=== PATIENT | female | born 1945 | race Caucasian/White ===

== ENCOUNTER 2022-03-20 13:15 | Outpatient (CLI) | payer MEDICARE, BC, SELFPAY ==
[2022-03-20 22:10] LABS: C Reactive Protein* 0.6 mg/dL (0.5-1.0)
[2022-03-20 22:30] LABS: Erythrocyte SedimentationRate* 16 mm/hr (2-20)
== END 2022-03-20 13:16 | disposition home or self-care (01) ==
PROVIDERS: PCP Nurse Practitioner Family; Visit Provider Nurse Practitioner Family
DX: M35.3 Polymyalgia rheumatica (principal)
CPT/HCPCS: 85651; 86140

== ENCOUNTER 2023-03-12 12:50 | Outpatient (CLI) | payer MEDICARE, BC, SELFPAY | END 2023-03-12 12:51 | disposition home or self-care (01) | LOC: NFLDREF 03-17 22:56 | PROVIDERS: PCP Nurse Practitioner Family; Referring Provider Nurse Practitioner Family; Visit Provider Nurse Practitioner Family | DX: Z87.440 Personal history of urinary (tract) infections (principal) | CPT/HCPCS: 81015 ==

== ENCOUNTER 2023-06-09 13:16 | Outpatient (CLI) | payer MEDICARE, BC, SELFPAY ==
--- OUTSIDE RECORDS SUMMARY | 2023-06-09 13:19 | XMS_ITS | Clinical Summary ---
Author Name Unknown Organization [facility] Address [address] [place] [address] Care Team Providers Care Pearl Digger Name Role Phone Elsewhere, Pcp Primary Care Provider Unavailabl e Source Comments Patient records contain information from all sites at [facility]. For routine questions regarding patient records, call [phone] during business hours, M-F 8:00 AM - 5:00 PM Central Time. Record requests for emergency care only can be directed to [phone] at any time.[facility] Allergies Active Allergy Reactions Criticality Noted Date Comments Cephalexin Rash Medium 05/15/2016 Glucagon Hives (Reselect Reaction),Rash Medium 07/27/2008 Penicillins Rash Medium 12/03/2001 Sulfa (Sulfonamide Antibiotics) Rash Medium 12/03/2001 Medications Medication Sig Dispensed Refills Start Date End Date Status glucosam-chondr oitin-diet cb25 116-100 mg capsule glucosamine-jamie droitin one capsule daily 0 4 Active calcium carbonate (CORAL CALCIUM ORAL) Take 1 tablet by mouth 2 (two) times a day. 500 mg. 0 7 Active docosahexanoic acid/epa (FISH OIL ORAL) Take 1 capsule by mouth 2 (two) times a day. 1200 mg. 0 7 Active melatonin 3 mg tablet Take 1 tablet by mouth at bedtime as needed. For sleep. 0 8 Active ascorbate calcium (VITAMIN C ORAL) Take 1 tablet by mouth every other day. [address] tablet Take 81 mg by mouth daily. 0 Active B complex-vitamin s (BALANCE B-50) tablet Take 1 tablet by mouth daily. 0 Active multivitamin capsule Take 1 capsule by mouth daily. 0 Active polyethylene glycol (MIRALAX) 17 gram powder packet Take 17 g by mouth as needed. Dissolve each 17 g dose in 240 mLs (8 ounces) of beverage. 0 Active MAGNESIUM ORAL Take 350 mg by mouth at bedtime. 0 Active ibuprofen (ADVIL,MOTRIN) 800 mg tablet Take 1 tablet by mouth as needed. 0 1 Active cyclobenzaprine (FLEXERIL) 5 mg tablet Take 1 tablet by mouth as needed. 0 1 Active carboxymethylce llulose (REFRESH TEARS) 0.5 % ophthalmic solution 1 drop 3 (three) times a day as needed for dry eyes. 0 Active ciclopirox (PENLAC) 8 % external solution APPLY 1 APPLICATION TOPICALLY NEEDED FOR TOE FUNGUS 6.6 mL 3 2 Active triamcinolone (KENALOG) 0.1 % ointment Apply 1 application topically 2 (two) times a day as needed for irritation or rash. Apply to affected areas of skin. DO NOT APPLY TO THE FACE. 30 g 1 2 Active Additional Information Patient taking differently:1 application. topicalAs needed, irritation, rash, Apply to affected areas of skin. DO NOT APPLY TO THE FACE., Reported on 05/28/2023 azithromycin (ZITHROMAX) 250 mg tablet Take 1 tablet (250 mg total) by mouth daily. Take 500 mg (2 tablets) by mouth the first day then 250 mg (1 tablet) by mouth for 4 more days. 6 tablet 0 2 Active tretinoin (RETIN-A) 0.05 % cream Apply 1 application topically at bedtime. 45 g 11 3 Active atenoloL (TENORMIN) 25 mg tablet Take 25 mg by mouth daily. 0 Active esomeprazole (NexIUM) [address] capsule take 1 capsule by mouth every day in the morning before breakfast 90 capsule 0 3 Active Additional Information Patient taking differently: As needed, Reported on 05/28/2023 estradioL (CLIMARA) 0.05 mg/24 hr patch APPLY 1 PATCH TOPICALLY ONE TIME PER WEEK 12 patch 0 3 Active atorvastatin (LIPITOR) 10 mg tablet take 1 tablet by mouth every day 90 tablet 0 4 Active losartan (COZAAR) 100 mg tablet Take 1 tablet (100 mg total) by mouth daily. 90 tablet 0 4 06/03/19 25 Active valACYclovir (VALTREX) 1000 mg tablet TAKE 2 TABLETS (2,000 MG TOTAL) BY MOUTH NEEDED (COLD SORES) FOR UP TO 10 DAYS 12 tablet 0 4 Active valACYclovir (VALTREX) 1000 mg tablet TAKE 2 TABLETS (2,000 MG TOTAL) BY MOUTH NEEDED (COLD SORES) FOR UP TO 10 DAYS. 12 tablet 1 2 06/02/19 24 Discontinued(Reo rder) losartan (COZAAR) 100 mg tablet Take 1 tablet (100 mg total) by mouth daily. 90 tablet 3 2 06/02/19 24 Discontinued(Reo rder) atorvastatin (LIPITOR) 10 mg tablet Take 1 tablet (10 mg total) by mouth daily. 90 tablet 3 2 05/25/19 24 Discontinued valACYclovir (VALTREX) 1000 mg tablet Take 2 tablets (2,000 mg total) by mouth as needed (TAKE 2 TABLETS (2000 MG TOTAL) BY MOUTH NEEDED (COLD SORES) FOR UP TO 10 DAYS). 12 tablet 0 4 06/04/19 24 Discontinued valACYclovir (VALTREX) 1000 mg tablet TAKE 2 TABLETS (2,000 MG TOTAL) BY MOUTH NEEDED (COLD SORES) FOR UP TO 10 DAYS 12 tablet 0 4 06/08/19 24 Discontinued Active Problems Problem Noted Date Diagnosed Date Hernia Incisional 04/15/2023 COVID-19 Infection 07/02/2021 Gallstone 06/09/2018 Prolapse Uterine 06/09/2018 Osteopenia 06/09/2018 Hirsutism 06/09/2018 Alopecia Androgenetic 06/09/2018 Primary Osteoarthritis Hip Bilateral 06/09/2018 Chondromalacia Patella Left 06/09/2018 Bunion Left 06/09/2018 Bunion Right 06/09/2018 Pain Low Back Mechanical 06/09/2018 Cough Unspecified Type 05/07/2018 Hypertension Essential Primary 05/07/2018 Hyperlipidemia 05/07/2018 Impaired Fasting Glucose 04/06/2018 Incontinence Urinary Stress Female 05/16/2016 Cancer Skin Basal Cell Personal History 07/07/19 15 Reflux Esophageal 07/30/2013 Overview: Esophageal reflux Irritable Bowel Syndrome Without Diarrhea 2009 Skin Cancer (Primary) NOS 05/04/2009 Gastroesophageal Reflux Disease NOS 05/04/1999 Resolved Problems Problem Noted Date Diagnosed Date Resolved Date Cataract Senile Nuclear Sclerosis Right 05/07/2021 08/15/2021 Overview: Added automatically from request for surgery [id number] Cataract Senile Nuclear Sclerosis Left 05/07/2021 08/29/2021 Overview: Added automatically from request for surgery [id number] Encounters Date Type Department Care Team Description 06/04/2023 Refill Division of General Internal Medicine in [place], [place] [address] [place] [phone] Gene Evans M.D., M.S. Med Change Request 06/04/2023 Refill Division of General Internal Medicine in [place], [place] [address] [place] [phone] Gene Evans M.D., M.S. Med Change Request 06/03/2023 Refill Division of General Internal Medicine in [place], [place] [address] [place] [phone] Gene Evans M.D., M.S. Med Refill 06/02/2023 Refill Division of General Internal Medicine in [place], [place] [address] [place] [phone] Gene Evans M.D., M.S. Med Refill 06/01/2023 Refill Division of General Internal Medicine in [place], [place] [address] [place] [phone] Gene Evans M.D., M.S. Med Refill 05/29/2023 3:00 PM [facility] Telemedicine Department of Obstetrics and Gynecology, Division of Urogynecology in [place], [place] [address] [place] [phone] Duong Giraldo M.D. Incontinence Urinary Stress Female (Primary Dx) 05/28/2023 11:30 AM HEALTH CARE FACILITY ADMINISTRATOR Clinical Communication Virtual Review in [place], [place] 200 [place] [address] Pre-visit Intake 05/22/2023 Refill Division of General Internal Medicine in [place], [place] [address] [place] [phone] Gene Evans M.D., M.S. Med Refill 04/22/2023 Clinical Communication Department of Obstetrics and Gynecology, Division of Urogynecology in [place], [place] [address] [place] [phone] Duong Giraldo M.D. Communication 04/15/2023 1:30 PM HEALTH CARE FACILITY ADMINISTRATOR Comprehensive Visit Division of Metabolic and Abdominal Wall Reconstructive Surgery in [address] [phone] Dahlia Guzman M.D. Hernia Incisional (Primary Dx) 04/14/2023 11:45 AM HEALTH CARE FACILITY ADMINISTRATOR Clinical Communication Virtual Review in [place], [place] [address] [place] [address] Pre-visit Intake 03/16/2023 Refill Division of General Internal Medicine in [place], [place] [address] [place] [phone] Maggy Keller, JAMILA, C.N.P., M.S.N. Med Refill 03/13/2023 Refill Division of General Internal Medicine in [place], [place] [address] [place] [phone] Gene Evans M.D., M.S. Med Refill from Last 3 Months Immunizations Name Administration Dates Next Due HZV (ZOSTAVAX) 03/22/2010 HepB Adult 09/24/2020(Deferred: Patient Ref used) Influenza Split 04/02/2012,03/04/2011 Influenza high dose QV(65 ye ars or older) (PF) 02/22/2020 Influenza, Unspecified 04/02/2012,03/04/2011 PCV20 11/13/2021(Deferred: Patient decision - to receive at later day) PPSV23(Discontinued) 08/04/2013 RZV (SHINGRIX) 11/13/2021, 2(Deferred: Patient Refused) SARS-COV-2 (COVID-19) - PFIZ ER (Discontinued)(12 years or older) 07/20/2020,06/27/2020 Td (Adult), adsorbed 09/23/2002 Td Preservative Free (TENIVA C, DECAVAC) 09/23/2002 Td, (Adult) Unspecified 09/23/2002 Tdap 08/04/2013 influenza high dose (65 year s or older) (PF) 03/09/2014,03/28/2013 influenza vaccine quad (FLUZONE/FLUARIX) (6 months and older)(PF) 03/04/2021 Family History Medical History Relation Name Comments Carotid artery disease Brother 1 Prasad Feng Migraines Brother 1 Prasad Feng Transient ischemic attack Brother 1 Prasad Feng Aortic dissection Brother 2 Rafael Feng Macular degeneration Brother 2 Rafael Feng Carotid artery disease Brother 3 Skin cancer Brother 4 Arsen Feng Transient ischemic attack Brother 4 Arsen Feng Macular degeneration Mother Chuyita Feng Migraines Mother Chuyita Feng No Known Problems Sister Isac Caban Amblyopia Neg Hx Blindness Neg Hx Cataracts Neg Hx Glaucoma Neg Hx Retinal degeneration Neg Hx Retinal detachment Neg Hx Strabismus Neg Hx Vision loss Neg Hx Relation Name Status Comments Brother 1 Prasad Feng Alive Brother 2 Rafael Feng (Age 77) Brother 3 Alive Brother 4 Arsen Feng Father Robin Feng (Age 73) Mother Chuyita Feng (Age 92) Sister Isac Meléndezing Alive Social History Tobacco Use Types Packs/Day Years Used Date Smoking Tobacco: Never Smokeless Tobacco: Never Alcohol Use Standard Drinks/Week Comments No 0 (1 standard drink = 0.6 oz pur e alcohol) Humiliation, Afraid, Rape, and Kick questionnair e Answer Date Recorded Within the last year, have y ou been afraid of your partner or ex-partner? No 07/07/2022 Within the last year, have y ou been humiliated or emotionally abused in other ways by your partner or ex-partner? No Within the last year, have y ou been kicked, hit, slapped, or otherwise physically hurt by your partner or ex-partner? No 07/07/2022 Within the last year, have y ou been raped or forced to have any kind of sexual activity by your partner or ex-partner? No 07/07/2022 Social Connection and Isolat ion Panel [NHANES] Answer Date Recorded In a typical week, how many times do you talk on the phone with family, friends, or neighbors? More than three times a week 07/07/2022 How often do you get togethe r with friends or relatives? Once a week 07/07/2022 How often do you attend chur or zoroastrianism services? More than 4 times per year 07/07/2022 Do you belong to any clubs o r organizations such as hindu groups, unions, fraternal or athletic groups, or school groups? No 07/07/2022 How often do you attend meet ings of the clubs or organizations you belong to? More than 4 times per year 07/07/2022 Are you , , di vorced, , never , or living with a partner? 07/07/2022 AUDIT-C Answer Date Recorded Q1: How often do you have a drink containing alcohol? Monthly or less 07/07/2022 Q2: How many drinks containi ng alcohol do you have on a typical day when you are drinking? Patient does not drink Q3: How often do you have si x or more drinks on one occasion? Never 07/07/2022 Overall Financial Resource Strain (CARDIA) Answe r Date Recorded How hard is it for you to pa y for the very basics like food, housing, medical care, and heating? Not hard at all 07/07/2022 PHQ-2 Answer Date Recorded PHQ-2 Score 0 11/13/2021 [facility] - Occupational Stress Questionnaire Answer Date Recorded Do you feel stress - tense, restless, nervous, or anxious, or unable to sleep at night because your mind is troubled all the time - these days? Not at all 07/07/2022 Exercise Vital Sign Answer Date Recorde d On average, how many days pe r week do you engage in moderate to strenuous exercise (like a brisk walk)? Patient declined On average, how many minutes do you engage in exercise at this level? Patient declined 07/07/2022 Hunger Vital Sign Answer Date Recorded Within the past 12 months, y ou worried that your food would run out before you got the money to buy more. Never true 07/08/19 23 Within the past 12 months, t he food you bought just didn't last and you didn't have money to get more. Never true 07/07/2022 PRAPARE - Transportation Answer Date Re corded In the past 12 months, has l ack of transportation kept you from medical appointments or from getting medications? No 10/2022 In the past 12 months, has l ack of transportation kept you from meetings, work, or from getting things needed for daily living? No 07/07/2022 Housing Stability Vital Sign Answer Earl e Recorded In the last 12 months, was t here a time when you were not able to pay the mortgage or rent on time? No 07/07/2022 In the last 12 months, how many places have you lived? 1 07/07/2022 In the last 12 months, was t here a time when you did not have a steady place to sleep or slept in a fdc (including now)? No 07/07/2022 Nutrition Answer Date Recorded Nutrition: EVOO Fat Source Yes 07/07 On average, how many serving s of fruits and vegetables do you eat per day (serving size is equal to 1 cup or approximately the size of a tennis ball)? 2-3 07/07/2022 Dental Answer Date Recorded Dental: Regular Dentist Yes 06/23/19 Employment Answer Date Recorded Employment status Retired 07/07/2022 Education Answer Date Recorded What is the highest level of school you have completed or the highest degree you have received? 12th grade 10/10/2018 Sex and Gender Information Value Date Recorded Sex Assigned at Female 02/22/2018 8:34 PM CDT Gender Identity Female 02/22/2018 8:34 PM CDT Sexual Orientation Straight 02/22/2018 8: 34 PM CDT Last Filed Vital Signs Vital Sign Reading Time Taken Comments Blood Pressure 138/67 12/08/2022 12:48 PM CDT Pulse 73 12/08/2022 12:48 PM CDT Temperature 37.4 ??C (99.3 ??F) 12/08/2022 12:48 PM C DT Respiratory Rate 16 08/29/2021 7:55 AM CDT Oxygen Saturation 96% 08/29/2021 8:02 AM CDT Inhaled Oxygen Concentration - - Weight 70 kg (154 lb 5.2 oz) 04/15/2023 1:38 PM HEALTH CARE FACILITY ADMINISTRATOR Height 163.7 cm (5' 4.45) 04/15/2023 1:38 PM CS T Body Mass Index 26.12 04/15/2023 1:38 PM HEALTH CARE FACILITY ADMINISTRATOR Plan of Treatment Upcoming Encounters Date Type Department Care Team (Latest Contact Info) Description 07/20/2023 12:36 PM CDT Hospital Encounter [facility] 02 4 AM ADMIT [address] [place] [address] Dahlia Guzman M.D. [address] [place] [phone] 07/20/2023 12:36 PM CDT - 07/20/2023 5:47 PM CDT Surgery [facility] MAIN OR [address] [place] [address] Dahlia Guzman M.D. [address] [place] [phone] ROBOTIC-ASSISTED VENTRAL HERNIA REPAIR Scheduled Procedures Name Priority Associated Diagnoses Date/Ti sd ROBOTIC-ASSISTED VENTRAL HERNIA REPAIR Hernia Incisional Incontinence Urinary Stress Female 07/20/2023 12:36 PM CDT TRANSPOSITION MUSCLE FLAP POSTERIOR TRUNK Hernia Incisional Incontinence Urinary Stress Female 07/20/2023 12:36 PM CDT INSERTION RETROPUBIC SYNTHETIC MIDURETHRAL SLING Hernia Incisional Incontinence Urinary Stress Female 07/20/2023 12:36 PM CDT PERIURETHRAL/TRANSURETHRAL BULKING AGENT Incontinence Urinary Stress Female Health Maintenance Due Date Last Done Comments Hepatitis C Screening 1945 Pneumococcal vaccine (65+ ye ars) (2 of 2 - PCV) 08/04/2014 08/04/2013 Zoster Vaccines (3 of 3) 01/08/2022 11/13/2021, 03/04 Fasting Glucose for Diabetes Screening 11/13/2022 11/13/2021, 12/02/2020, 09/24/2020, Additional history exists Potassium Level 11/13/2022 11/13/2021, 08/0 05/2020, 09/24/2020, Additional history exists Sodium Level 11/13/2022 11/13/2021, 08/0 05/2020, 09/24/2020, Additional history exists COVID-19 Vaccine (3 - 2022-2 4 season) 2023 07/20/2020, 06/27/2020 Influenza Vaccine (#1) 2023 , 02/22/2020, 03/09/2014, Additional history exists Depression Screening (Annual PHQ-2) 05/04/2023 Fall Risk Screen (Annual) 05/04/2023 DTaP,Tdap,and Td Vaccines (2 - Td or Tdap) 08/05/2023 08/04/2013, 09/23/2002, 09/23/2002, Additional history exists Creatinine Level (Kidney Fun ction Test) 10/11/2023 10/10/2022, 11/13/2021, 12/02/2020, Additional history exists Office Visit for Blood Press ure Check / Re-check 12/09/2023 12/08/2022, 09/23/2019 Colonoscopy Discontinued 05/11/2008 CT Colonography Discontinued 07/27/2008 Cologuard Discontinued 12/27/2022, 06/0 05/2019, 05/15/2016 Colorectal Cancer Screening Discontinued Mammogram Discontinued 02/10/2023, 11/01, 09/24/2020, Additional history exists FIT Discontinued Medical Devices Implanted Type Area Advertising Operations Coordinator Device Identifier Shelf Expiration Date Model / Serial / Lot Integris [facility] Ult [facility] 6x6 - [id number] Implanted:Qty: 1 on 08/30/2018 by Duong Giraldo M.D. at [facility] Mesh or Patch Ethicon 09/01/2023 UM / / [id number] Conversions - Default Historical Implant Device Implanted:05/04 (Quantity not on file) Misc Other Mouth Description:Device Status Te xt - MiscOther. One dental implant. Travis [place] [id number] Implanted:Qty: 1 on 08/15/2021 by Tyree Rucker M.D. at [facility] Ocular Lens Right: Eye [employer] [id number] 07/12/2024 [id number] +25.0 D / [id number] / Acrysofiq Vivity Toric [id number] +24.5d Implanted:Qty: 1 on 08/29/2021 by Tyree Rucker M.D. at [facility] Ocular Lens Left: Eye [employer] [id number] 08/14/2024 [id number] / [id number] / Advance Directives For more information, please contact: [phone] Latest Code Status on File Code Status Date Activated Date Inactivated Comments Full Code 08/30/2018 6:23 PM 08/31/2018 4:10 PM Question Answer Comments Full Code: Discussed Care Teams Pearl Digger Relationship Specialty Start Date End Date Elsewhere, Pcp PCP - General Internal Medicine 02/23/23 Chuyita LOPEZ [facility] [place] [address] External Primary Care Physician Family Medicine 02/23/23
--- OUTSIDE RECORDS SUMMARY | 2023-06-09 13:19 | XMS_ITS | Encounter Summary ---
Author Name Unknown Organization [facility] Address [address] [place] [address] Care Team Providers Care Quantity Surveyor Name Role Phone Elsewhere, Pcp Primary Care Provider Unavailabl e Reason for Visit * Reason Comments Med Change Request Encounter Details Date Type Department Care Team (Late st Contact Info) Description 06/04/2023 Refill Division of General Internal Medicine in [place], [place] [address] [place] [phone] Gene Evans M.D., M.S. [address] [place] [phone] Med Change Request Social History Tobacco Use Types Packs/Day Years [...] 07/07/2022 How often do you attend chur ch or taoist services? More than 4 times per year 07/07/2022 Do you belong to any clubs o r organizations such as adventist groups, unions, fraternal or athletic groups, or [...] Answer Date Recorded PHQ-2 Score 0 11/13/2021 [facility] Answer Date Recorded [...] place to sleep or slept in a senior care (including now)? No 07/07/2022 Nutrition Answer Date [...] Orientation Straight 02/22/2018 8: 34 PM CDT documented as of this encounter Plan of Treatment Upcoming Encounters Date Type Department Care Team (Latest Contact Info) Description 07/20/2023 12:36 PM CDT Hospital Encounter [facility] 02 4 AM ADMIT [address] [place] [address] Dahlia Guzman M.D. [address] [place] [address] 07/20/2023 12:36 PM CDT - 07/20/2023 5:47 PM CDT Surgery [facility] MAIN OR [address] [place] [address] Dahila Guzman M.D. [address] [place] [phone] ROBOTIC-ASSISTED VENTRAL HERNIA REPAIR Scheduled Procedures Name Priority Associated Diagnoses Date/Ti vt ROBOTIC-ASSISTED VENTRAL HERNIA REPAIR Hernia Incisional Incontinence Urinary Stress Female 07/20/2023 12:36 PM CDT TRANSPOSITION MUSCLE FLAP POSTERIOR TRUNK Hernia Incisional Incontinence Urinary Stress Female 07/20/2023 12:36 PM CDT INSERTION RETROPUBIC SYNTHETIC MIDURETHRAL SLING Hernia Incisional Incontinence Urinary Stress Female 07/20/2023 12:36 PM CDT PERIURETHRAL/TRANSURETHRAL BULKING AGENT Incontinence Urinary Stress Female documented as of this encounter Visit Diagnoses Not on filedocumented in this encounter Care Teams Quantity Surveyor Relationship Specialty Start Date End Date Elsewhere, Pcp PCP - General Internal Medicine 02/23/23 Chuyita Washburn [address] [place] [address] External Primary Care Physician Family Medicine 02/23/23 documented as of this encounter
--- OUTSIDE RECORDS SUMMARY | 2023-06-09 13:19 | XMS_ITS | Referral Summary ---
Author Name Unknown Organization [facility] Address [address] [place] [address] Care Team Providers Care Attendant [facility] Name Role Phone Elsewhere, Pcp Primary Care Provider Unavailabl e Source Comments Patient records contain information from all sites at [facility]. For routine questions regarding patient records, call [phone] during business hours, M-F 8:00 AM - 5:00 PM Central Time. Record requests for emergency care only can be directed to [phone] at any time.[facility] Encounters Date Type Department Care Team Description 06/04/2023 Refill Division of General Internal Medicine in [place], [place] [address] [place] [phone] Gene Evans M.D., M.S. Med Change Request 06/04/2023 Refill Division of General Internal Medicine in [place], [place] [address] [place] [phone] Gene Evans M.D., M.S. Med Change Request 06/03/2023 Refill Division of General Internal Medicine in [place], [place] [address] [place] [phone] Gene Evans M.D., M.S. Med Refill 06/02/2023 Refill Division of General Internal Medicine in [place], [place] [address] [place] [phone] Gene Evans M.D., M.S. Med Refill 06/01/2023 Refill Division of General Internal Medicine in [place], [place] [address] [place] [phone] Gene Evans M.D., M.S. Med Refill 05/29/2023 3:00 PM FIRE MARSHAL REFINERY Telemedicine Department of Obstetrics and Gynecology, Division of Urogynecology in [place], [place] [address] [place] [phone] Duong Giraldo M.D. Incontinence Urinary Stress Female (Primary Dx) 05/28/2023 11:30 AM FIRE MARSHAL REFINERY Clinical Communication Virtual Review in [place], [place] 200 [place] [address] Pre-visit Intake 05/22/2023 Refill Division of General Internal Medicine in [place], [place] [address] [place] [phone] Gene Evans M.D., M.S. Med Refill 04/22/2023 Clinical Communication Department of Obstetrics and Gynecology, Division of Urogynecology in [place], [place] [address] [place] [phone] Duong Giraldo M.D. Communication 04/15/2023 1:30 PM FIRE MARSHAL REFINERY Comprehensive Visit Division of Metabolic and Abdominal Wall Reconstructive Surgery in [address] [phone] Dahlia Guzman M.D. Hernia Incisional (Primary Dx) 04/14/2023 11:45 AM FIRE MARSHAL REFINERY Clinical Communication Virtual Review in [address] [address] Pre-visit Intake 03/16/2023 Refill Division of General Internal Medicine in [address] [phone] Maggy Keller, JAMILA, C.N.P., M.S.N. Med Refill 03/13/2023 Refill Division of General Internal Medicine in [place], [place] [address] [place] [phone] Gene Evans M.D., M.S. Med Refill from Last 3 Months Allergies Active Allergy Reactions Criticality Noted Date [...] Overview: Added automatically from request for surgery [id number] Cataract Senile Nuclear Sclerosis Left 05/07/2021 08/29/2021 Overview: Added automatically from request for surgery [id number] Immunizations Name Administration Dates Next Due HZV [...] quad (FLUZONE/FLUARIX) (6 months and older)(PF) 03/04/2021 Social History Tobacco Use Types Packs/Day Years [...] How often do you attend chur or druze services? More than 4 times per year 07/07/2022 Do you belong to any clubs o r organizations such as worship groups, unions, fraternal or athletic groups, or [...] Answer Date Recorded PHQ-2 Score 0 11/13/2021 [facility] Occupat ional Health - Occupational Stress [...] place to sleep or slept in a retirement (including now)? No 07/07/2022 Nutrition Answer Date [...] (154 lb 5.2 oz) 04/15/2023 1:38 PM FIRE MARSHAL REFINERY Height 163.7 cm (5' 4.45) 04/15/2023 1:38 PM CS T Body Mass Index 26.12 04/15/2023 1:38 PM FIRE MARSHAL REFINERY Plan of Treatment Upcoming Encounters Date Type Department Care Team (Latest Contact Info) Description 07/20/2023 12:36 PM CDT Hospital Encounter [facility] 02 4 AM ADMIT [address] [place] [address] Dahlia Guzman M.D. [address] [place] [address] 07/20/2023 12:36 PM CDT - 07/20/2023 5:47 PM CDT Surgery [facility] MAIN OR [address] [place] [address] Dahlia Guzman M.D. [address] [place] [address] ROBOTIC-ASSISTED VENTRAL HERNIA REPAIR Scheduled Procedures Name Priority Associated Diagnoses Date/Ti nh ROBOTIC-ASSISTED VENTRAL HERNIA REPAIR Hernia Incisional Incontinence Urinary Stress Female 07/20/2023 12:36 PM CDT TRANSPOSITION MUSCLE FLAP POSTERIOR TRUNK Hernia Incisional Incontinence Urinary Stress Female 07/20/2023 12:36 PM CDT INSERTION RETROPUBIC SYNTHETIC MIDURETHRAL SLING Hernia Incisional Incontinence Urinary Stress Female 07/20/2023 12:36 PM CDT PERIURETHRAL/TRANSURETHRAL BULKING AGENT Incontinence Urinary Stress Female Medical Devices Implanted Type Area Hide Trimmer Device Identifier Shelf Expiration Date Model / Serial / Lot [facility] 6[facility] - [id number] Implanted:Qty: 1 on 08/30/2018 by Duong Giraldo M.D. at [facility] Mesh or Patch Ethicon 09/01/2023 [id number] / / [id number] Conversions - Default Historical Implant Device Implanted:05/04 (Quantity not on file) Misc Other Mouth Description:Device Status Te xt - MiscOther. One dental implant. Vivity Toric [id number] Implanted:Qty: 1 on 08/15/2021 by Tyree Rucker M.D. at [facility] Ocular Lens Right: Eye [employer] [id number] 07/12/2024 [id number] +25.0 D / [id number] / Acrysofiq Vivity Toric [id number] +24.5d Implanted:Qty: 1 on 08/29/2021 by Tyree Rucker M.D. at [facility] Ocular Lens Left: Eye [employer] [id number] 08/14/2024 [id number] / [id number] / Advance Directives For more information, please contact: [phone] Latest Code Status on File Code Status Date Activated Date Inactivated Comments Full Code 08/30/2018 6:23 PM 08/31/2018 4:10 PM Question Answer Comments Full Code: Discussed Care Teams Attendant [facility] Relationship Specialty Start Date End Date Elsewhere, Pcp PCP - General Internal Medicine 02/23/23 Chuyita LOPEZ DARYL ANGUIANO [address] External Primary Care Physician Family Medicine 02/23/23
--- OUTSIDE RECORDS SUMMARY | 2023-06-09 13:19 | XMS_ITS ---
Author Name Unknown Organization [facility] Address [address] [place] [address] Care Team Providers Care Pole Climber Name Role Phone Unavailable Unavailable Unavailable Surgery Details Not on file Complications Check Surgery Details section. Procedure Estimated Blood Loss Check Surgery Details section. Procedure Findings Check Surgery Details section. Procedure Specimens Taken Check Surgery Details section.
--- OUTSIDE RECORDS SUMMARY | 2023-06-09 13:19 | XMS_ITS ---
Author Name Unknown Organization [facility] Address [address] [place] [address] Care Team Providers Care Public Safety Teacher Name Role Phone Elsewhere, Pcp Primary Care Provider Unavailabl e Active Problems Problem Noted Date Diagnosed Date [...] NOS 05/04/2009 Gastroesophageal Reflux Disease NOS 05/04/1999 Current Oncology Plans No current plan information found. Past Plans Radiation Treatments * No radiation treatments are documented for this patient in [facility]. Treatments may have been administered in another system. Lifetime Dose Tracking * Chemical Lifetime Dose Automatic Entry Manual Entr y Radiation 11 mGy 11 mGy 0 mGy Fluoro Time 1.4 minutes 1.4 minutes 0 minutes DAP (uGy-m2) 159 uGy-m2 159 uGy-m2 0 uGy-m2 Resolved Problems Problem Noted Date Diagnosed Date Resolved Date Cataract Senile Nuclear Sclerosis Right 05/07/2021 08/15/2021 Overview: Added automatically from request for surgery [id number] Cataract Senile Nuclear Sclerosis Left 05/07/2021 08/29/2021 Overview: Added automatically from request for surgery [id number]
--- OUTSIDE RECORDS SUMMARY | 2023-06-09 13:20 | XMS_ITS | Encounter Summary ---
Author Name Unknown Organization [facility] Address [address] [place] [address] Care Team Providers Care Laboratory Miller Name Role Phone Elsewhere, Pcp Primary Care Provider Unavailabl e Reason for Visit * Reason Onset Date Comments Pre-visit Intake 04/14/2023 Encounter Details Date Type Department Care Team (Latest Contact Info) Description 04/14/2023 11:45 AM PVC MONITOR Clinical Communication Virtual Review in [place], [place] [address] [place], [place] [phone] Pre-visit Intake Social History Tobacco Use Types Packs/Day Years [...] How often do you attend chur or protestant services? More than 4 times per year 07/07/2022 Do you belong to any clubs o r organizations such as religious groups, unions, fraternal or athletic groups, or [...] Answer Date Recorded PHQ-2 Score 0 11/13/2021 [facility] Occupat ional Health - [...] place to sleep or slept in a residential (including now)? No 07/07/2022 Nutrition Answer Date Recorded Nutrition: EVOO Fat Source Yes 07/07 On average, how many serving s of fruits and vegetables do you eat per day (serving size is equal to 1 cup or approximately the size of a tennis ball)? 2-3 07/07/2022 Dental Answer Date Recorded Dental: Regular Dentist Yes 06/23/19 21 Employment Answer Date Recorded Employment status Retired [...] ROEI 02 4 AM ADMIT [address] [place] [address] Dahlia Guzman M.D. [address] [place] [phone] 07/20/2023 12:36 PM CDT - 07/20/2023 5:47 PM CDT Surgery [facility] MAIN OR [address] [place] [phone] Dahlia Guzman M.D. [address] [place] [address] ROBOTIC-ASSISTED VENTRAL HERNIA REPAIR Scheduled Procedures Name Priority Associated Diagnoses Date/Ti me ROBOTIC-ASSISTED VENTRAL HERNIA REPAIR Hernia Incisional Incontinence [...] on filedocumented in this encounter Care Teams Laboratory Miller Relationship Specialty Start Date End Date Elsewhere, Pcp PCP - General Internal Medicine 02/23/23 Chuyita Washburn [address] [place] [address] External Primary Care Physician Family Medicine 02/23/23 documented as of this encounter
--- OUTSIDE RECORDS SUMMARY | 2023-06-09 13:20 | XMS_ITS | Encounter Summary ---
Author Name Unknown Organization [facility] Address [address] [place] [address] Care Team Providers Care Python Web Developer Name Role Phone Elsewhere, Pcp Primary Care Provider Unavailabl e Reason for Visit * Outpatient (Routine) - Closed Specialty Diagnoses / Procedures Referred By Contac t Referred To Contact Obstetrics and Gynecology Duong Giraldo M.D. [address] [place] [phone] [facility] Referral ID Status Reason Start Date Expiration Date Visits Re quested Visits Authorized [id number] Closed 04/22/2023 04/21/2026 1 1 Encounter Details Date Type Department Care Team (Latest Contact Info) Description 05/29/2023 3:00 PM SEQUINS SPOOLER Telemedicine Department of Obstetrics and Gynecology, Division of Urogynecology in [place], [place] [address] [place] [phone] Duong Giraldo M.D. [address] [place] [phone] Incontinence Urinary Stress Female (Primary Dx) Social History Tobacco Use Types Packs/Day Years [...] often do you attend chur ch or catholic services? More than 4 times per year 07/07/2022 Do you belong to any clubs o r organizations such as pentecostalism groups, unions, fraternal or athletic groups, or [...] Answer Date Recorded PHQ-2 Score 0 11/13/2021 [facility] of Occupat ional Health - Occupational Stress [...] place to sleep or slept in a chcf (including now)? No 07/07/2022 Nutrition Answer Date [...] PM CDT documented as of this encounter Progress Notes * Duong Giraldo M.D. - 05/29/2023 3:00 PM CST SUBJECTIVE REASON FOR VISIT Return Visit HISTORY OF PRESENT CONDITION Ms. Elizondo is here for virtual visit to clarify upcoming surgery for stress incontinence. HISTORY REVIEW The following portions of the patient's history were reviewed and updated as appropriate: allergies, current medications, family history, medical history, social history, surgical history and problemlist. OBJECTIVE VITAL SIGNS There were no vitals filed for this visit. PHYSICAL EXAM Deferred ASSESSMENT / PLAN #1 Stress urinary incontinence Reviewed risks and benefits and compared bulking agent versus retropubic mid urethral sling. Given that she is now needing to undergo ventral hernia repair it seems reasonable to switch to retropubicprocedure. We discussed polypropylene slings versus other abdominal procedures (Simpson versus autologous rectusfascia slings) and risks and benefits with each approach. I also reviewed FDA warnings in 2007 and 2010 regarding vaginal mesh kits for prolapse repairs and compared and contrasted these kits with lisa ypropylene mesh for mid urethral slings. Explained at length that the FDA warnings and recent recall was specific to vaginal mesh kits and did not extend to abdominal prolapse repairs or incontinenceprocedures. After a thorough discussion the patient opted to undergo a retropubic midurethral sling(Desara), cystoscopy, and proceed as indicated. Risks, benefits, and alternatives of the procedure were reviewed at length with the patient including bleeding (sometimes necessitating a blood transfusion), postoperative pain and infection, damage to surrounding organs, persistent incontinence, incomplete bladder emptying, mesh exposure, and exacerbation/de mark overactive bladder symptoms. Moreover, she is aware that some of these complications may require additional surgical interventions. Discussed advance directives and the necessity of other members of the healthcare team, both male and female, participating in the procedure. All questions answered and consent given. Duong Giraldo M.D. INS SPOOLER documented in this encounter Plan of Treatment Upcoming Encounters Date Type Department Care Team (Latest Contact Info) Description 07/20/2023 12:36 PM CDT Hospital Encounter RST [facility] 02 4 AM ADMIT [address] [place] [address] Dahlia Guzman M.D. 200 [place] [address] 07/20/2023 12:36 PM CDT - 07/20/2023 5:47 PM CDT Surgery [facility] MAIN OR [address] [place] [address] Dahlia Guzman M.D. [address] [place] [address] ROBOTIC-ASSISTED VENTRAL HERNIA REPAIR Scheduled Procedures Name Priority Associated Diagnoses Date/Ti al ROBOTIC-ASSISTED VENTRAL HERNIA REPAIR Hernia Incisional Incontinence Urinary Stress Female 07/20/2023 12:36 PM CDT TRANSPOSITION MUSCLE FLAP POSTERIOR TRUNK Hernia Incisional Incontinence Urinary Stress Female 07/20/2023 12:36 PM CDT INSERTION RETROPUBIC SYNTHETIC MIDURETHRAL SLING Hernia Incisional Incontinence Urinary Stress Female 07/20/2023 12:36 PM CDT PERIURETHRAL/TRANSURETHRAL BULKING AGENT Incontinence Urinary Stress Female documented as of this encounter Visit Diagnoses Diagnosis Hernia Incisional- Primary Incontinence Urinary Stress Female Incontinence Urinary Stress Female- Primary Hernia Incisional Incontinence Urinary Stress Female documented in this encounter Care Teams Python Web Developer Relationship Specialty Start Date End Date Elsewhere, Pcp PCP - General Internal Medicine 02/23/23 Chuyita Washburn [address] [place] [address] External Primary Care Physician Family Medicine 02/23/23 documented as of this encounter
--- OUTSIDE RECORDS SUMMARY | 2023-06-09 13:20 | XMS_ITS | Encounter Summary ---
Author Name Unknown Organization [facility] Address [address] [place] [address] Care Team Providers Care Drum Dyeing Machine Operator Name Role Phone Elsewhere, Pcp Primary Care Provider Unavailabl e Reason for Visit * Reason Comments Med Refill Encounter Details Date Type Department Care Team (Late st Contact Info) Description 06/03/2023 Refill Division of General Internal Medicine in [place], [place] [address] [place] [phone] Gene Evans M.D., M.S. [address] [place] [phone] Med Refill Social History Tobacco Use Types Packs/Day Years [...] often do you attend chur ch or evangelical services? More than 4 times per year 07/07/2022 Do you belong to any clubs o r organizations such as hinduism groups, unions, fraternal or athletic groups, or [...] Answer Date Recorded PHQ-2 Score 0 11/13/2021 [facility] Questionnaire Answer Date [...] place to sleep or slept in a [place] facility (including now)? No 07/07/2022 Nutrition Answer Date [...] ROEI 02 4 AM ADMIT [address] [place] [address] Dahlia Guzman M.D. [address] [place] [address] 07/20/2023 12:36 PM CDT - 07/20/2023 5:47 PM CDT Surgery [facility] MAIN OR [address] [place] [address] Dahlia Guzman M.D. [address] [place] [address] ROBOTIC-ASSISTED VENTRAL HERNIA REPAIR Scheduled Procedures Name Priority Associated Diagnoses Date/Ti ma ROBOTIC-ASSISTED VENTRAL HERNIA REPAIR Hernia Incisional Incontinence [...] on filedocumented in this encounter Care Teams Drum Dyeing Machine Operator Relationship Specialty Start Date End Date Elsewhere, Pcp PCP - General Internal Medicine 02/23/23 Chuyita Washburn [address] [place] [address] External Primary Care Physician Family Medicine 02/23/23 documented as of this encounter
--- OUTSIDE RECORDS SUMMARY | 2023-06-09 13:20 | XMS_ITS | Encounter Summary ---
Author Name Unknown Organization [facility] Address [address] [place] [address] Care Team Providers Care Timber Framer Name Role Phone Elsewhere, Pcp Primary Care Provider Unavailabl e Reason for Visit * Outpatient (Routine) - Closed Specialty Diagnoses / Procedures Referred By Nikki t Referred To Contact General Surgery Diagnoses Hernia Incisional Duong Giraldo M.D. [address] [place] [phone] [facility] Referral ID Status Reason Start Date Expiration Date Visits Re quested Visits Authorized [id number] Closed 02/25/2023 02/25/2024 1 1 Encounter Details Date Type Department Care Team (Latest Contact Info) Description 04/15/2023 1:30 PM HONING MACHINE OPERATOR PRODUCTION Comprehensive Visit Division of Metabolic and Abdominal Wall Reconstructive Surgery in [place], [place] [address] [place] [phone] Dahlia Guzman M.D. [address] [place] [phone] Hernia Incisional (Primary Dx) Social History Tobacco Use Types [...] How often do you attend chur or hindu services? More than 4 times per year 07/07/2022 Do you belong to any clubs o r organizations such as yazidism groups, unions, fraternal or athletic groups, or [...] Date Recorded PHQ-2 Score 0 11/13/2021 [facility] - Occupational [...] place to sleep or slept in a [facility]p (including now)? No 07/07/2022 Nutrition Answer Date [...] PM CDT documented as of this encounter Last Filed Vital Signs Vital Sign Reading Time Taken Comments Blood Pressure - - Pulse - - Temperature - - Respiratory Rate - - Oxygen Saturation - - Inhaled Oxygen Concentration - - Weight 70 kg (154 lb 5.2 oz) 04/15/2023 1:38 PM HONING MACHINE OPERATOR PRODUCTION Height 163.7 cm (5' 4.45) 04/15/2023 1:38 PM CS T Body Mass Index 26.12 04/15/2023 1:38 PM HONING MACHINE OPERATOR PRODUCTION documented in this encounter Consult Notes * Dahlia Guzman M.D. - 04/15/2023 1:30 PM CST Images from the original note were not included. [phone] CHIEF COMPLAINT/REASON FOR VISIT Staci Elizondo is a pleasant 77 y.o. female who presents for evaluation of a ventral hernia. She was referred by Duong Giraldo M.D.. HISTORY OF PRESENT ILLNESS Ms. Elizondo was referred for evaluation of a ventral hernia.She has a history of an appendectomy and a repair of a perforated uterus as well as an open JIMMIE/BSO and repair of a pelvic organ prolapse and a lap sergo. She now has a large lower midline incisional hernia with a noticeable bulge. This does cause her a significant amount of discomfort. She does not have any obstructive symptoms but doesfeel as though it is getting bigger. She is schedule to undergone another procedure for urinary incontinence. Body mass index is 26.12 kg/m??. The patient does not use nicotine products. The patient is not diabetic. The patient is not on immunosuppressant medications. The patient is not on blood thinners REVIEW OF SYSTEMS All pertinent items noted in HPI. HOME MEDICATIONS Prior to Admission medications Medication Sig Start Date End Date Taking? Authorizing Provider ascorbate calcium (VITAMIN C ORAL) Take 1 tablet by mouth every other day. Provider, Historical aspirin [address] tablet Take 81 mg by mouth daily. Provider, Historical atenoloL (TENORMIN) 25 mg tablet Take 25 mg by mouth daily. Provider, Historical atorvastatin (LIPITOR) 10 mg tablet Take 1 tablet (10 mg total) by mouth daily. 04/10/22 04/14/23 Gene Evans M.D., M.S. azithromycin (ZITHROMAX) 250 mg tablet Take 1 tablet (250 mg total) by mouth daily. Take 500 mg (2 tablets) by mouth the first day then 250 mg (1 tablet) by mouth for 4 more days. Patient not taking: Reported on 12/08/2022 04/10/22 Gene Evans M.D., M.S. B complex-vitamins (BALANCE B-50) tablet Take 1 tablet by mouth daily. Provider, Historical calcium carbonate (CORAL CALCIUM ORAL) Take 1 tablet by mouth 2 (two) times a day. 500 mg. 05/15/16 Provider, Historical carboxymethylcellulose (REFRESH TEARS) 0.5 % ophthalmic solution 1 drop 3 (three) times a day as needed for dry eyes. Provider, Historical ciclopirox (PENLAC) 8 % external solution APPLY 1 APPLICATION TOPICALLY NEEDED FOR TOE FUNGUS 04/08/22 Gene Evans M.D., M.S. cyclobenzaprine (FLEXERIL) 5 mg tablet Take 1 tablet by mouth as needed. 03/29/21 Provider, Historical docosahexanoic acid/epa (FISH OIL ORAL) Take 1 capsule by mouth 2 (two) times a day. 1200 mg. 05/15/16 Provider, Historical esomeprazole (NexIUM) [address] capsule take 1 capsule by mouth every day in the morning before breakfast 03/15/23 Gene Evans M.D., M.S. estradioL (CLIMARA) 0.05 mg/24 hr patch APPLY 1 PATCH TOPICALLY ONE TIME PER WEEK 03/17/23 Gene Evans M.D., M.S. ldsscbwx-xamuotqmwzq-mxoe cb25 116-100 mg capsule glucosamine-chondroitin one capsule daily 07/30/13Provider, Historical ibuprofen (ADVIL,MOTRIN) 800 mg tablet Take 1 tablet by mouth as needed. 07/10/20 Provider, Historical losartan (COZAAR) 100 mg tablet Take 1 tablet (100 mg total) by mouth daily. 04/10/22 04/10/23 Gene Evans M.D., M.S. MAGNESIUM ORAL Take 350 mg by mouth at bedtime. Provider, Historical melatonin 3 mg tablet Take 1 tablet by mouth at bedtime as needed. For sleep. 05/21/17 Provider, Historical multivitamin capsule Take 1 capsule by mouth daily. Provider, Historical polyethylene glycol (MIRALAX) 17 gram powder packet Take 17 g by mouth as needed. Dissolve each 17 g dose in 240 mLs (8 ounces) of beverage. Provider, Historical tretinoin (RETIN-A) 0.05 % cream Apply 1 application topically at bedtime. 07/11/22 Justin Chaudhary M.D. triamcinolone (KENALOG) 0.1 % ointment Apply 1 application topically 2 (two) times a day as needed for irritation or rash. Apply to affected areas of skin. DO NOT APPLY TO THE FACE. 04/10/22 Gene Evans M.D., M.S. valACYclovir (VALTREX) 1000 mg tablet TAKE 2 TABLETS (2,000 MG TOTAL) BY MOUTH NEEDED (COLD SORES) FOR UP TO 10 DAYS. 07/17/21 Gene Evans M.D., M.S. ALLERGIES Allergies Allergen Reactions Cephalexin Rash Glucagon Hives (Reselect Reaction) and Rash Penicillins Rash Sulfa (Sulfonamide Antibiotics) Rash PAST MEDICAL/SURGICAL HISTORY Past Medical History: Diagnosis Date Alopecia Androgenetic Bunion Left Bunion Right Cataract 2021 Chondromalacia Patella Left Cough Unspecified Type 05/07/2018 Cystocele Gallstone Gastroesophageal Reflux Disease NOS 1999 Headache Unspecified Hirsutism Hyperlipidemia 05/07/2018 Hypertension Essential Primary 05/07/2018 Irritable Bowel Syndrome Without Diarrhea 2010 Osteopenia Pain Low Back Mechanical Pneumonia 1957 Primary Osteoarthritis Hip Bilateral Prolapse Uterine Skin Cancer (Primary) NOS 2009 Past Surgical History: Procedure Laterality Date APPENDECTOMY 1970 BLADDER SURGERY BLEPHAROPLASTY Bilateral 2011 BREAST CYST ASPIRATION CHOLECYSTECTOMY N/A 08/30/2018 Procedure: Cholecystectomy, laparoscopic.; Surgeon: Justin Carter M.D.; Location: [facility] CYSTOSCOPY RIGID N/A 08/30/2018 Procedure: Cystoscopy Rigid, Proceed As Indicated.; Surgeon: Duong Giraldo M.D.; Location: [facility] OR DENTAL IMPLANT HYSTERECTOMY ABDOMINAL WITH SALPINGO - OOPHORECTOMY N/A 08/30/2018 Procedure: Hysterectomy Abdominal, Bilateral Salpingectomy.; Surgeon: Duong Giraldo M.D.; Location: [facility] OR LAPAROTOMY - ABBREVIATED - OPEN ABDOMEN INITIAL N/A 08/30/2018 Procedure: Laparotomy, Open Abdomen.; Surgeon: Duong Giraldo M.D.; Location: [facility] OR OTHER 1970 repair of a perforated uterus from removal of an IUD PHACOEMULSIFICATION CATARACT WITH INTRAOCULAR LENS IMPLANTATION Right 08/15/2021 Procedure: Phacoemulsification Cataract with Intraocular Lens Implantation RT; Surgeon: Tyree Rucker M.D.; Location: [facility] OR PHACOEMULSIFICATION CATARACT WITH INTRAOCULAR LENS IMPLANTATION Left 08/29/2021 Procedure: Phacoemulsification Cataract with Intraocular Lens Implantation; Surgeon: Tyree Rucker M.D.; Location: [facility] OR SACROCOLPOPEXY ABDOMINAL N/A 08/30/2018 Procedure: Sacrocolpopexy Abdominal.; Surgeon: Duong Giraldo M.D.; Location: [facility] OR PHYSICAL EXAM Gen: AOx3 NAD Lungs: CTA B/L CVS: RRR +S1/S2 Abd: soft, non-tender, non-distended lower midline incisional hernia Ext: no ulcers, edema Leukocytes Date Value Ref Range Status 11/13/2021 8.2 3.4 - 9.6 x10(9)/L Final Hemoglobin Date Value Ref Range Status 11/13/2021 13.4 11.6 - 15.0 g/dL Final Hematocrit Date Value Ref Range Status 11/13/2021 42.2 35.5 - 44.9 % Final MCV Date Value Ref Range Status 11/13/2021 98.6 (H) 78.2 - 97.9 fL Final Platelet Count Date Value Ref Range Status 11/13/2021 265 157 - 371 x10(9)/L Final Abdominal CT: I have personally reviewed her CT scan. She has a 4cm incisional hernia but she does have a very narrow rectus muscles. ASSESSMENT AND PLAN Ms. Elizondo is a 77 y.o. female that present with a ventral hernia. We discussed the risks, benefits and alternatives to surgery and deemed that Ms. Elizondo is an excellent candidate for a robotic ventral hernia repair. We discuss that due to her narrow rectus muscles on both sides we will need to do perform a component separation. We discussed an overnight duration of stay as well as possible complications which include infection, mesh infection, bleeding, recurrence, injury to surrounding structures and chronic pain. Consent was obtained. Surgery was schedule for 07/19. All questions were answered 04.15.2023 NG MACHINE OPERATOR PRODUCTION documented in this encounter Plan of Treatment Upcoming Encounters Date Type Department Care Team (Latest Contact Info) Description 07/20/2023 12:36 PM CDT Hospital Encounter [facility] 02 4 AM ADMIT [address] [place] [address] Dahlia Guzman M.D. [address] [place] [address] 07/20/2023 12:36 PM CDT - 07/20/2023 5:47 PM CDT Surgery [facility] MAIN OR [address] [place] [address] Dahlia Guzman M.D. [address] [place] [address] ROBOTIC-ASSISTED VENTRAL HERNIA REPAIR Scheduled Procedures Name [...] encounter Visit Diagnoses Diagnosis Hernia Incisional- Primary Hernia Incisional- Primary Hernia Incisional Incontinence Urinary Stress Female documented in this encounter Care Teams Timber Framer Relationship Specialty Start Date End Date Elsewhere, Pcp PCP - General Internal Medicine 02/23/[address] [place] [phone] External Primary Care Physician Family Medicine 02/23/23 documented as of this encounter
--- OUTSIDE RECORDS SUMMARY | 2023-06-09 13:20 | XMS_ITS | Encounter Summary ---
Author Name Unknown Organization [facility] Address [address] [place] [address] Care Team Providers Care Optoelectronic Technician Name Role Phone Elsewhere, Pcp Primary Care Provider Unavailabl e Reason for Visit * Reason Comments Med Refill Encounter Details Date Type Department Care Team (Late st Contact Info) Description 06/01/2023 Refill Division of General Internal Medicine in [place], [place] [address] [place] [phone] Gene Evans M.D., M.S. [address] [place] [phone] Med Refill Social History Tobacco Use Types [...] often do you attend chur ch or latter-day services? More than 4 times per year 07/07/2022 Do you belong to any clubs o r organizations such as christianity groups, unions, fraternal or athletic groups, or [...] Answer Date Recorded PHQ-2 Score 0 11/13/2021 [facility] Questionnaire Answer Date Recorded [...] place to sleep or slept in a fci (including now)? No 07/07/2022 Nutrition Answer Date [...] [facility] 02 4 AM ADMIT [address] [place] [address] Dahlia Guzman M.D. [address] [place] [address] 07/20/2023 12:36 PM CDT - 07/20/2023 5:47 PM CDT Surgery [facility] MAIN OR [address] [place] [address] Dahlia Guzman M.D. [address] [place] [address] ROBOTIC-ASSISTED VENTRAL HERNIA REPAIR Scheduled Procedures Name Priority Associated Diagnoses Date/Ti ak ROBOTIC-ASSISTED VENTRAL HERNIA REPAIR Hernia Incisional Incontinence [...] on filedocumented in this encounter Care Teams Optoelectronic Technician Relationship Specialty Start Date End Date Elsewhere, Pcp PCP - General Internal Medicine 02/23/23 Chuyita [address]burn [address] [place] [address] External Primary Care Physician Family Medicine 02/23/23 documented as of this encounter
--- OUTSIDE RECORDS SUMMARY | 2023-06-09 13:20 | XMS_ITS | Encounter Summary ---
Author Name Unknown Organization [facility] Address [address] [place] [address] Care Team Providers Care Vp Emerging Media Name Role Phone Elsewhere, Pcp Primary Care Provider Unavailabl e Reason for Visit * Reason Comments Med Change Request Encounter Details Date Type Department Care Team (Late st Contact Info) Description 06/04/2023 Refill Division of General Internal Medicine in [place], [place] [address] [place] [phone] Gene Evans M.D., M.S. [address] [place] [phone] Med Change Request Social History Tobacco Use [...] often do you attend chur ch or bahai services? More than 4 times per year 07/07/2022 Do you belong to any clubs o r organizations such as restoration groups, unions, fraternal or athletic groups, or [...] Answer Date Recorded PHQ-2 Score 0 11/13/2021 [facility] [place] [facility] Questionnaire Answer Date [...] place to sleep or slept in a nursing home (including now)? No 07/07/2022 Nutrition Answer Date [...] [facility] 02 4 AM ADMIT [address] [place] [address] Dahlia Guzman M.D. [address] [place] [address] 07/20/2023 12:36 PM CDT - 07/20/2023 5:47 PM CDT Surgery [facility] MAIN [facility] [address] [place] [address] Dahlia Guzman M.D. [address] [place] [address] ROBOTIC-ASSISTED VENTRAL HERNIA REPAIR Scheduled Procedures Name Priority Associated Diagnoses Date/Ti nj ROBOTIC-ASSISTED VENTRAL HERNIA REPAIR Hernia Incisional Incontinence [...] on filedocumented in this encounter Care Teams Vp Emerging Media Relationship Specialty Start Date End Date Elsewhere, Pcp PCP - General Internal Medicine 02/23/23 Chuyita Washburn [address] [place] [phone] External Primary Care Physician Family Medicine 02/23/23 documented as of this encounter
--- OUTSIDE RECORDS SUMMARY | 2023-06-09 13:20 | XMS_ITS | Encounter Summary ---
Author Name Unknown Organization [facility] Address [address] [place] [address] Care Team Providers Care Carbon Grinder Name Role Phone Elsewhere, Pcp Primary Care Provider Unavailabl e Encounter Details Date Type Department Care Team (Late st Contact Info) Description 02/27/2023 Orders Only Department of Obstetrics and Gynecology, Division of Urogynecology in [place], [place] [address] [place] [phone] Sherley Baker M.D. [address] [place] [phone] Acute Cystitis Without Hematuria (Primary Dx) Social History Tobacco Use Types [...] often do you attend chur ch or jew services? More than 4 times per year [...] Answer Date Recorded PHQ-2 Score 0 11/13/2021 [facility] - Occupational Stress Questionnaire Answer Date Recorded [...] place to sleep or slept in a jail (including now)? No 07/07/2022 Nutrition Answer Date [...] [facility] 02 4 AM ADMIT [address] [place] [address] Dahlia Guzman M.D. [address] [place] [address] 07/20/2023 12:36 PM CDT - 07/20/2023 5:47 PM CDT Surgery [facility] [address] [place] [address] Dahlia Guzman M.D. [address] [place] [address] ROBOTIC-ASSISTED VENTRAL HERNIA REPAIR Scheduled Procedures Name Priority Associated Diagnoses Date/Ti dc ROBOTIC-ASSISTED VENTRAL HERNIA REPAIR Hernia Incisional Incontinence Urinary Stress Female 07/20/2023 12:36 PM CDT TRANSPOSITION MUSCLE FLAP POSTERIOR TRUNK Hernia Incisional Incontinence Urinary Stress Female 07/20/2023 12:36 PM CDT INSERTION RETROPUBIC SYNTHETIC MIDURETHRAL SLING Hernia Incisional Incontinence Urinary Stress Female 07/20/2023 12:36 PM CDT PERIURETHRAL/TRANSURETHRAL BULKING AGENT Incontinence Urinary Stress Female documented as of this encounter Visit Diagnoses Diagnosis Acute Cystitis Without Hematuria- Primary Hernia Incisional Incontinence Urinary Stress Female documented in this encounter Care Teams Carbon Grinder Relationship Specialty Start Date End Date Elsewhere, Pcp PCP - General Internal Medicine 02/23/23 Chuyita Washburn [address] [place] [address] External Primary Care Physician Family Medicine 02/23/23 documented as of this encounter
--- OUTSIDE RECORDS SUMMARY | 2023-06-09 13:20 | XMS_ITS | Encounter Summary ---
Author Name Unknown Organization [facility] Address [address] [place] [address] Care Team Providers Care Bobbin Winder Name Role Phone Elsewhere, Pcp Primary Care Provider Unavailabl e Reason for Visit * Reason Comments Med Refill Encounter Details Date Type Department Care Team (Late st Contact Info) Description 03/16/2023 Refill Division of General Internal Medicine in [place], [place] [address] [place] [phone] Maggy Keller APRN, C.N.P., M.S.N. [address] [place] [phone] Med Refill Social History Tobacco Use Types [...] often do you attend chur ch or mu-ism services? More than 4 times per year 07/07/2022 Do you belong to any clubs o r organizations such as shinto groups, unions, fraternal or athletic groups, or [...] Answer Date Recorded PHQ-2 Score 0 11/13/2021 [facility] - Occupational Stress Questionnaire Answer Date [...] [facility] 02 4 AM ADMIT [address] [place] [address] Dahlia Guzman M.D. [address] [place] [address] 07/20/2023 12:36 PM CDT - 07/20/2023 5:47 PM CDT Surgery [facility] [address] [place] [address] Dahlia Guzman M.D. [address] [place] [address] ROBOTIC-ASSISTED VENTRAL HERNIA REPAIR Scheduled Procedures Name Priority Associated Diagnoses Date/Ti mo ROBOTIC-ASSISTED VENTRAL HERNIA REPAIR Hernia Incisional Incontinence [...] on filedocumented in this encounter Care Teams Bobbin Winder Relationship Specialty Start Date End Date Elsewhere, Pcp PCP - General Internal Medicine 02/23/23 Chuyita Washburn [address] [place] [address] External Primary Care Physician Family Medicine 02/23/23 documented as of this encounter
--- OUTSIDE RECORDS SUMMARY | 2023-06-09 13:20 | XMS_ITS | Encounter Summary ---
Author Name Unknown Organization [facility] Address [address] [place] [address] Care Team Providers Care Contract Mail Carrier Name Role Phone Elsewhere, Pcp Primary Care Provider Unavailabl e Reason for Visit * Reason Comments Med Refill Encounter Details Date Type Department Care Team (Late st Contact Info) Description 03/13/2023 Refill Division of General Internal Medicine in [place], [place] [address] [place] [phone] Gene Evans M.D., M.S. [address] [place] [phone] Med Refill Social History Tobacco Use Types [...] often do you attend chur ch or church services? More than 4 times per year 07/07/2022 Do you belong to any clubs o r organizations such as samaritan groups, unions, fraternal or athletic groups, or [...] Answer Date Recorded PHQ-2 Score 0 11/13/2021 [facility]ational [facility] Questionnaire Answer Date [...] place to sleep or slept in a mcc (including now)? No 07/07/2022 Nutrition Answer Date [...] [facility] 02 4 AM ADMIT [address] [place] [address] Dahlia Guzman M.D. [address] [place] [address] 07/20/2023 12:36 PM CDT - 07/20/2023 5:47 PM CDT Surgery [facility] [address] [place] [address] Dahlia Guzman M.D. [address] [place] [address] ROBOTIC-ASSISTED VENTRAL HERNIA REPAIR Scheduled Procedures Name Priority Associated Diagnoses Date/Ti in ROBOTIC-ASSISTED VENTRAL HERNIA REPAIR Hernia Incisional Incontinence [...] on filedocumented in this encounter Care Teams Contract Mail Carrier Relationship Specialty Start Date End Date Elsewhere, Pcp PCP - General Internal Medicine 02/23/23 Chuyita Washburn [address] [place] [address] External Primary Care Physician Family Medicine 02/23/23 documented as of this encounter
--- OUTSIDE RECORDS SUMMARY | 2023-06-09 13:20 | XMS_ITS | Encounter Summary ---
Author Name Unknown Organization [facility] Address [address] [place] [address] Care Team Providers Care Night Shift Supervisor Name Role Phone Elsewhere, Pcp Primary Care Provider Unavailabl e Reason for Visit * Reason Onset Date Comments Pre-visit Intake 05/28/2023 Encounter Details Date Type Department Care Team (Latest Contact Info) Description 05/28/2023 11:30 AM CAD DRAFTSMAN Clinical Communication Virtual Review in [place], [place] 200 [place], [place] [phone] Pre-visit Intake Social History Tobacco Use Types [...] How often do you attend chur or muslim services? More than 4 times per year 07/07/2022 Do you belong to any clubs o r organizations such as jainism groups, unions, fraternal or athletic groups, or [...] Answer Date Recorded PHQ-2 Score 0 11/13/2021 [facility] - Occupational [...] place to sleep or slept in a halfway (including now)? No 07/07/2022 Nutrition Answer Date [...] [facility] 02 4 AM ADMIT [address] [place] [address] Dahlia Guzman M.D. [address] [place] [phone] 07/20/2023 12:36 PM CDT - 07/20/2023 5:47 PM CDT Surgery [facility] MA[facility] OR [address] [place] [phone] Dahlia Guzman M.D. [address] [place] [address] ROBOTIC-ASSISTED VENTRAL HERNIA REPAIR Scheduled Procedures Name [...] on filedocumented in this encounter Care Teams Night Shift Supervisor Relationship Specialty Start Date End Date Elsewhere, Pcp PCP - General Internal Medicine 02/23/23 Chuyita Washburn [address] [place] [address] External Primary Care Physician Family Medicine 02/23/23 documented as of this encounter
--- OUTSIDE RECORDS SUMMARY | 2023-06-09 13:20 | XMS_ITS | Encounter Summary ---
Author Name Unknown Organization [facility] Address [address] [place] [address] Care Team Providers Care Sharemilker Name Role Phone Elsewhere, Pcp Primary Care Provider Unavailabl e Reason for Visit * Reason Comments Med Refill Encounter Details Date Type Department Care Team (Late st Contact Info) Description 05/22/2023 Refill Division of General Internal Medicine in [place], [place] [address] [place] [phone] Gene Evans M.D., M.S. [address] [place] [phone] Med Refill Social History Tobacco Use Types [...] often do you attend chur ch or rastafari services? More than 4 times per year 07/07/2022 Do you belong to any clubs o r organizations such as catholic groups, unions, fraternal or athletic groups, or [...] Answer Date Recorded PHQ-2 Score 0 11/13/2021 [facility] Questionnaire Answer Date [...] place to sleep or slept in a custodial (including now)? No 07/07/2022 Nutrition Answer Date [...] ROEI 02 4 AM ADMIT [address] [place] [address] Dahlia Guzman M.D. [address] [place] [address] 07/20/2023 12:36 PM CDT - 07/20/2023 5:47 PM CDT Surgery [facility]ST [facility] MAIN OR [address] [place] [address] Dahlia Guzman M.D. [address] [place] [address] ROBOTIC-ASSISTED VENTRAL HERNIA REPAIR Scheduled Procedures Name Priority Associated Diagnoses Date/Ti ky ROBOTIC-ASSISTED VENTRAL HERNIA REPAIR Hernia Incisional Incontinence [...] on filedocumented in this encounter Care Teams Sharemilker Relationship Specialty Start Date End Date Elsewhere, Pcp PCP - General Internal Medicine 02/23/23 Chuyita Washburn [address] [place] [phone] External Primary Care Physician Family Medicine 02/23/23 documented as of this encounter
--- OUTSIDE RECORDS SUMMARY | 2023-06-09 13:20 | XMS_ITS | Encounter Summary ---
Author Name Unknown Organization [facility] Address [address] [place] [address] Care Team Providers Care [employer] Dean Name Role Phone Elsewhere, Pcp Primary Care Provider Unavailabl e Reason for Visit * Reason Comments Med Refill Encounter Details Date Type Department Care Team (Late st Contact Info) Description 06/02/2023 Refill Division of General Internal Medicine in [place], [place] [address] [place] [phone] Gene Evans M.D., M.S. [address] [place] [phone] Med Refill Social History Tobacco Use Types [...] often do you attend chur ch or mormonism services? More than 4 times per year 07/07/2022 Do you belong to any clubs o r organizations such as scientology groups, unions, fraternal or athletic groups, or [...] Answer Date Recorded PHQ-2 Score 0 11/13/2021 [facility] Questionnaire Answer Date [...] ROEI 02 4 AM ADMIT [address] [place] [address] Dahlia Guzman M.D. [address] [place] [address] 07/20/2023 12:36 PM CDT - 07/20/2023 5:47 PM CDT Surgery [facility] MAIN OR [address] [place] [address] Dahlia Guzman M.D. [address] [place] [address] ROBOTIC-ASSISTED VENTRAL HERNIA REPAIR Scheduled Procedures Name Priority Associated Diagnoses Date/Ti mn ROBOTIC-ASSISTED VENTRAL HERNIA REPAIR Hernia Incisional Incontinence [...] on filedocumented in this encounter Care Teams Business [employer] Dean Relationship Specialty Start Date End Date Elsewhere, Pcp PCP - General Internal Medicine 02/23/23 Chuyita Washburn [address] [place] [phone] External Primary Care Physician Family Medicine 02/23/23 documented as of this encounter
--- OUTSIDE RECORDS SUMMARY | 2023-06-09 13:20 | XMS_ITS | Encounter Summary ---
Author Name Unknown Organization [facility] Address [address] [place] [address] Care Team Providers Care Tie In Machine Operator Name Role Phone Elsewhere, Pcp Primary Care Provider Unavailabl e Reason for Referral * Outpatient (Routine) - Closed Specialty Diagnoses / Procedures Referred By Nikki t Referred To Contact Obstetrics and Gynecology Duong Giraldo M.D. [address] [place] [phone] [facility] Referral ID Status Reason Start Date Expiration Date Visits Re quested Visits Authorized [id number] Closed 04/22/2023 04/21/2026 1 1 ARCH EPIDEMIOLOGIST Reason for Visit * Reason Onset Date Comments Communication 04/22/2023 Encounter Details Date Type Department Care Team (Latest Contact Info) Description 04/22/2023 Clinical Communication Department of Obstetrics and Gynecology, Division of Urogynecology in [place], [place] 200 [place] [phone] Duong Giraldo M.D. [address] [place] [phone] Communication Social History Tobacco Use Types Packs/Day Years [...] week 07/07/2022 How often do you attend [facility] or jewish services? More than 4 times per year 07/07/2022 Do you belong to any clubs o r organizations such as yarsani groups, unions, fraternal or athletic groups, or [...] Answer Date Recorded PHQ-2 Score 0 11/13/2021 [facility] - Occupational Stress [...] place to sleep or slept in a assisted (including now)? No 07/07/2022 Nutrition Answer Date [...] 07/20/2023 12:36 PM CDT Hospital Encounter RST RO 02 4 AM ADMIT [address] [place] [address] Dahlia Guzman M.D. [address] [place] [address] 07/20/2023 12:36 PM CDT - 07/20/2023 5:47 PM CDT Surgery RST RO MAIN OR [address] [place] [address] Dahlia Guzman M.D. [address] [place] [address] ROBOTIC-ASSISTED VENTRAL HERNIA REPAIR Scheduled Procedures Name Priority Associated Diagnoses Date/Ti me ROBOTIC-ASSISTED VENTRAL HERNIA REPAIR Hernia Incisional Incontinence Urinary Stress Female 07/20/2023 12:36 PM CDT TRANSPOSITION MUSCLE FLAP POSTERIOR TRUNK Hernia Incisional Incontinence Urinary Stress Female 07/20/2023 12:36 PM CDT INSERTION RETROPUBIC SYNTHETIC MIDURETHRAL SLING Hernia Incisional Incontinence Urinary Stress Female 07/20/2023 12:36 PM CDT PERIURETHRAL/TRANSURETHRAL BULKING AGENT Incontinence Urinary Stress Female Scheduled Referrals Name Type Priority Associated Diagnoses Order Schedule Obstetrics and Gynecology office visit (clinic) Outpatient Referral Routine Expected: 04/22/2023 (Approximate), Expires: 07/21/2024 documented as of this encounter Visit Diagnoses Not on filedocumented in this encounter Care Teams Tie In Machine Operator Relationship Specialty Start Date End Date Elsewhere, Pcp PCP - General Internal Medicine 02/23/[address] [place] [address] External Primary Care Physician Family Medicine 02/23/23 documented as of this encounter
--- OUTSIDE RECORDS SUMMARY | 2023-06-09 13:20 | XMS_ITS | Encounter Summary ---
Author Name Unknown Organization [facility] Address [address] [place] [address] Care Team Providers Care Microbiology Instructor Name Role Phone Elsewhere, Pcp Primary Care Provider Unavailabl e Reason for Visit * Outpatient (Routine) - Closed Specialty Diagnoses / Procedures Referred By Nikki t Referred To Contact Diagnoses Incontinence Urinary Stress Female Procedures OBG Urodynamic Studies Duong Giraldo M.D. [address] [place] [phone] [facility] Referral ID Status Reason Start Date Expiration Date Visits Re quested Visits Authorized [id number] Closed 12/16/2022 12/16/2023 1 1 Encounter Details Date Type Department Care Team (Latest Contact Info) Description 02/25/2023 1:45 PM CDT Procedure visit Department of Obstetrics and Gynecology, Division of Urogynecology in [place], [place] [address] [place] [phone] Duong Giraldo M.D. [address] [place] [phone] Incontinence Urinary Stress Female (Primary Dx) Social [...] How often do you attend chur or anabaptist services? More than 4 times per year 07/07/2022 Do you belong to any clubs o r organizations such as muslim groups, unions, fraternal or athletic groups, or [...] place to sleep or slept in a longterm (including now)? No 07/07/2022 Nutrition Answer Date [...] PM CDT documented as of this encounter Procedure Notes * Sherley Baker M.D. - 02/25/2023 1:45 PM CDTAssociated Order(s): OBG Urodynamic Studies Pre-Procedure Diagnose(s): Incontinence Urinary Stress Female Post-Procedure Diagnose(s): Incontinence Urinary Stress Female OBG Urodynamic Studies Performed by: Duong Giraldo M.D. Authorized by: Duong Giraldo M.D. Care team members present 1. Juli Mann 2. Kelly Montes De Oca R.N. PROCEDURE DETAILS: Procedures: Combined (CMG + Uro) Equipment used: calibrated electronically Cough stress test: positive Flow pattern: flattened and with intermittency or interruption Interpretation: abnormal Uroflow voided volume (mL): 425 Uroflow post-void residual (mL): 14 Uroflow postvoid residual measured by: ultrasound Volume infused (mL): 350 Detrusor activity: stable during filling Support of significant prolapsE: no Valsalva-related leakage: present (Sitting and standing) Cough-related leakage: present (Lying, Sitting and Standing) Volume of stress urinary incontinence: moderate Repeat Uroflow: no Uroflow: abnormal Abnormal pattern due to: flattened, intermittency Cystometry: stress urinary incontinence and no urodynamic evidence of detrusor overactivity The following procedures were performed during this urodynamic study: Bladder irrigation installation, post-void residual - catheter, post-void residual - ultrasound and complex uroflow CONSENT Consent obtained: verbal Consent given by: patient The benefits, risks and alternatives to the procedure and the potential need for sedation or anesthesia as well as the names, roles, and responsibilities of healthcare team members performing significant interventional tasks were discussed with the patient and/or decision maker. UNIVERSAL PROTOCOL All relevant documentation and testing were reviewed and available. All required blood products, implants, devices and or special equipment were made available as applicable. Pre-procedure verification was conducted and the correct site was marked if required. A fire risk assessment was done as applicable. The procedural time-out to verify correct patient, correct side/site, and procedure was conducted prior to performing the procedure and confirmed in a procedural pause. PRE-PROCEDURE DETAILS: Indications: urinary incontinence Appropriate hand hygiene, gown, cap, mask, protective eyewear, sterile gloves, skin preparation, sterile drape, and strict aseptic technique were utilized as applicable for the procedure.: yes Site preparation: Povidone-iodine SEDATION / ANESTHESIA Anesthesia method: none POST-PROCEDURE DETAILS Procedure completed successfully: yes Complications: no apparent complications Comments Urinated prior to procedure; emptied bladder for 40mL. Urine collected and sent for UA and culture. Impression: 1. Abnormal uroflow with flattened flow curve and intermittency 2. Moderate volume stress urinary incontinence 3. No evidence of detrusor overactivity 4. No evidence of incomplete bladder emptying Please correlate clinically. GYNSURG Exam Amb documented in this encounter Plan of Treatment Upcoming Encounters Date Type Department Care Team (Latest Contact Info) Description 07/20/2023 12:36 PM CDT Hospital Encounter RST [facility] 02 4 AM ADMIT [address] [place] [address] Dahlia Guzman M.D. [address] [place] [phone] 07/20/2023 12:36 PM CDT - 07/20/2023 5:47 PM CDT Surgery RST [facility] OR [address] [place] [address] Dahlia Guzman M.D. [address] [place] [phone] ROBOTIC-ASSISTED VENTRAL HERNIA REPAIR Scheduled Procedures Name Priority Associated Diagnoses Date/Ti nd ROBOTIC-ASSISTED VENTRAL HERNIA REPAIR Hernia Incisional Incontinence Urinary Stress Female 07/20/2023 12:36 PM CDT TRANSPOSITION MUSCLE FLAP POSTERIOR TRUNK Hernia Incisional Incontinence Urinary Stress Female 07/20/2023 12:36 PM CDT INSERTION RETROPUBIC SYNTHETIC MIDURETHRAL SLING Hernia Incisional Incontinence Urinary Stress Female 07/20/2023 12:36 PM CDT PERIURETHRAL/TRANSURETHRAL BULKING AGENT Incontinence Urinary Stress Female documented as of this encounter Procedures Procedure Name Priority Date/Time Associated Diagnosis Comments DIPSTICK, U Routine 02/25/2023 1:59 PM CDT MICROSCOPIC MANUAL Routine 02/25/2023 1: 59 PM CDT BACTERIAL CULTURE, AEROBIC + SUSC, URINE Routine 02/25/2023 1:59 PM CDT Incontinence Urinary Stress Female PH, U Routine 02/25/2023 1:59 PM CDT OSMOLALITY, U Routine 02/25/2023 1:59 PM CDT URINALYSIS WITH MICROSCOPIC Routine 02/25/2023 1:59 PM CDT Incontinence Urinary Stress Female DE CYSTOMETROGRAM COMPLEX Routine 02/25/2023 1:45 PM CDT Incontinence Urinary Stress Female DE UROFLOWMETRY CMPLX Routine 02/25/2023 1:45 PM CDT Incontinence Urinary Stress Female DE SIERRA PST VOID RESID US NON IMG Routine 02/25/2023 1:45 PM CDT Incontinence Urinary Stress Female documented in this encounter Results * Microscopic Manual (02/25/2023 1:59 PM CDT) Microscopy Normal 02/25/2023 4:19 PM CDT DTL RBC <3 <3 /hpf 02/25/2023 4:19 PM CDT DTL WBC 1-3 /hpf 02/25/2023 4:19 PM CDT DTL Comment: ----REFERENCE VALUE---- 1-3 ??(Males) 1-10 (Females) Crystals Amorphous crystals present 02/25/2023 4:19 PM CDT DTL Urine 02/25/2023 1:59 PM CDT 02/25/2023 3:43 PM CDT Duong Giraldo M.D. LAB URINE ORDERAB LES [facility] [address] [place] [address], [facility] 200 [place] [address] * Dipstick, Urine (02/25/2023 1:59 PM CDT) Hemoglobin, QL Negative Negative 02/25/2023 3:45 PM CDT DTL Leukocyte Esterase, U Negative Negative 02/25/2023 3:45 PM CDT DTL Nitrite, U Negative Negative 02/25/2023 3:45 PM CDT DTL Ketones, U Negative Negative mg/dL 02/25/2023 3:45 PM CDT DTL Glucose, U Negative Negative mg/dL 02/25/2023 3:45 PM CDT DTL Urine 02/25/2023 1:59 PM CDT 02/25/2023 3:15 PM CDT Duong Giraldo M.D. LAB URINE ORDERAB LES [facility] [address] [place] [address], [facility] [address] [place] [address] * Osmolality, Urine (02/25/2023 1:59 PM CDT) Pathologist [facility] Osmolality, U 413 150 - 1150 mOsm/kg 02/25/2023 3:41 PM CDT DTL Urine 02/25/2023 1:59 PM CDT 02/25/2023 3:15 PM CDT Duong Giraldo M.D. LAB URINE ORDERAB LES [facility] [address] [place] [address], [facility] 200 [place] [address] * pH, Urine (02/25/2023 1:59 PM CDT) pH, U 6.9 4.5 - 8.0 02/25/2023 3:4 1 PM CDT DTL Urine 02/25/2023 1:59 PM CDT 02/25/2023 3:15 PM CDT Duong Giraldo M.D. LAB URINE ORDERAB LES Performing Organization Address City/[facility]/ZIP Co de Phone Number [facility] [address] [place] [address], [address] [address] * Urinalysis with Microscopic: Urine, Straight Catheter (02/25/2023 1:59 PM CDT) Source Urine, Urine, Straight Catheter 02/25/2023 3:14 PM CDT DTL Color, U Yellow 02/25/2023 3:15 PM CDT DTL Clarity, U Clear 02/25/2023 3:15 PM CDT DTL Protein, U 6 <26 mg/dL 02/25/2023 3:51 PM CDT DTL Protein/Osmola lity 0.15 <0.42 ratio 02/25/2023 3:51 PM CDT DTL Predicted 24 HR Protein, U 116 <229 mg/24 h 02/25/2023 3:51 PM CDT DTL Predicted Range 29-470 mg/24 h 02/25/2023 3:51 PM CDT DTL Urine (Urine, Straight Catheter) 02/25/2023 1:59 PM CDT 02/25/2023 3:14 PM CDT Duong Giraldo M.D. LAB URINE ORDERAB LES Performing Organization Address City/[facility]/ZIP Co de Phone Number [facility] [address] [place] [address], [facility] [address] [place] [address] * (ABNORMAL) Bacterial Culture, Aerobic + Susceptibility, Urine (02/25/2023 1:59 PM CDT) Urine Culture PROTEUS MIRABILIS 10,000-100,00 0 cfu/mL (A) 02/27/2023 11:33 AM CDT DTL Urine (Urine, Straight Catheter) 02/25/2023 1:59 PM CDT 02/25/2023 3:32 PM CDT Comment:Specimen Source Site : Urine Narrative Organism Antibiotic Method Susceptibility Proteus mirabilis Ampicillin SUSCEPTIBILITY , RENEE (MCG/ML) 2 mcg/mL: Susceptible Proteus mirabilis Meropenem SUSCEPTIBILITY , RENEE (MCG/ML) <=0.12 mcg/mL: Susceptible Proteus mirabilis Ertapenem SUSCEPTIBILITY , RENEE (MCG/ML) <=0.25 mcg/mL: Susceptible Proteus mirabilis Piperacillin + Tazobactam SUSC EPTIBILITY, RENEE (MCG/ML) <=8/4 mcg/mL: Susceptible Proteus mirabilis Ciprofloxacin SUSCEPTIBILITY , RENEE (MCG/ML) <=0.25 mcg/mL: Susceptible Proteus mirabilis Levofloxacin SUSCEPTIBILITY , RENEE (MCG/ML) <=0.5 mcg/mL: Susceptible Proteus mirabilis Cefazolin SUSCEPTIBILITY , RENEE (MCG/ML) 8 mcg/mL: Resistant Proteus mirabilis Ceftriaxone SUSCEPTIBILITY , RENEE (MCG/ML) <=1 mcg/mL: Susceptible Proteus mirabilis Ceftazidime SUSCEPTIBILITY , RENEE (MCG/ML) <=4 mcg/mL: Susceptible Proteus mirabilis Cefepime SUSCEPTIBILITY , RENEE (MCG/ML) <=2 mcg/mL: Susceptible Proteus mirabilis Cefazolin (Uncomplic ated UTI) SUSCEPTIBILITY, RENEE (MCG/ML) 8 mcg/mL: Susceptible Comment: The interpretation applies to uncomplicated urinary tract infections only. It also applies to these oral cephalosporins: cefuroxime, cephalexin, and cefprozil. Proteus mirabilis Cefdinir SUSCEPTIBILITY , RENEE (MCG/ML) <=1 mcg/mL: Susceptible Proteus mirabilis Amikacin SUSCEPTIBILITY , RENEE (MCG/ML) 8 mcg/mL: Intermediate Proteus mirabilis Gentamicin SUSCEPTIBILITY , RENEE (MCG/ML) 4 mcg/mL: Intermediate Proteus mirabilis Tobramycin SUSCEPTIBILITY , RENEE (MCG/ML) 2 mcg/mL: Susceptible Proteus mirabilis Aztreonam SUSCEPTIBILITY , RENEE (MCG/ML) <=4 mcg/mL: Susceptible Proteus mirabilis Trimethoprim + Sulfamethoxazole SUSCEPTIBILITY, RENEE (MCG/ML) <=0.5/9.5 mcg/mL: Susceptible Proteus mirabilis Nitrofurantoin SUSCEPTIBILITY , RENEE (MCG/ML) >64 mcg/mL: Resistant Duong Giraldo M.D. LAB MICROBIOLOGY - GENERAL ORDERABLES [facility] [address] [place] [address], [facility] [address] [place] [address] * DE SIERRA PST VOID RESID US NON IMG, DE UROFLOWMETRY CMPLX, DE CYSTOMETROGRAM COMPLEX (02/25/2023 1:45 PM CDT) Narrative Duong Giraldo M.D. - 02/25/2023 1:45 PM CDT Sherley Baker M.D. ? 02/25/2023 ??4:03 PM OBG Urodynamic Studies Performed by: Duong Giraldo M.D. Authorized by: Duong Giraldo M.D. ?? Care team members present 1. Juli Mann 2. Kelly Montes De Oca, RClarissaNClarissa PROCEDURE DETAILS: Procedures: Combined (CMG + Uro) Equipment used: calibrated electronically Cough stress test: positive ?? Flow pattern: flattened and with intermittency or interruption ?? Interpretation: abnormal ?? Uroflow voided volume (mL): 425 Uroflow post-void residual (mL): 14 Uroflow postvoid residual measured by: ultrasound ?? Volume infused (mL): 350 Detrusor activity: stable during filling ?? Support of significant prolapsE: no ?? Valsalva-related leakage: present (Sitting and standing) ?? Cough-related leakage: present (Lying, Sitting and Standing) ?? Volume of stress urinary incontinence: moderate ?? Repeat Uroflow: no ?? Uroflow: abnormal ?? Abnormal pattern due to: flattened, intermittency Cystometry: stress urinary incontinence and no urodynamic evidence of detrusor overactivity ?? The following procedures were performed during this urodynamic study: ?? Bladder irrigation installation, post-void residual - catheter, post-void residual - ultrasound and complex uroflow CONSENT Consent obtained: verbal Consent given by: patient The benefits, risks and alternatives to the procedure and the potential need for sedation or anesthesia as well as the names, roles, and responsibilities of healthcare team members performing significant interventional tasks were discussed with the patient and/or decision maker. UNIVERSAL PROTOCOL All relevant documentation and testing were reviewed and available. All required blood products, implants, devices and or special equipment were made available as applicable. Pre-procedure verification was conducted and the correct site was marked if required. A fire risk assessment was done as applicable. The procedural time-out to verify correct patient, correct side/site, and procedure was conducted prior to performing the procedure and confirmed in a procedural pause. PRE-PROCEDURE DETAILS: ??Indications: urinary incontinence ?Appropriate hand hygiene, gown, cap, mask, protective eyewear, sterile gloves, skin preparation, sterile drape, and strict aseptic technique were utilized as applicable for the procedure.: yes ?Site preparation: ??Povidone-iodine SEDATION / ANESTHESIA Anesthesia method: none POST-PROCEDURE DETAILS ?? Procedure completed successfully: yes ?? Complications: no apparent complications Comments Urinated prior to procedure; emptied bladder for 40mL. Urine collected and sent for UA and culture. Impression: 1. Abnormal uroflow with flattened flow curve and intermittency 2. Moderate volume stress urinary incontinence 3. No evidence of detrusor overactivity 4. No evidence of incomplete bladder emptying Please correlate clinically. Duong Giraldo M.D. OB GYNE ORDERABLE S documented in this encounter Visit Diagnoses Diagnosis Incontinence Urinary Stress Female- Primary Hernia Incisional Incontinence Urinary Stress Female documented in this encounter Care Teams Microbiology Instructor Relationship Specialty Start Date End Date Elsewhere, Pcp PCP - General Internal Medicine 02/23/23 [place] [address] External Primary Care Physician Family Medicine 02/23/23 documented as of this encounter
--- OUTSIDE RECORDS SUMMARY | 2023-06-09 13:21 | XMS_ITS | Encounter Summary ---
Author Name Unknown Organization [facility] Address [address] [place] [address] Care Team Providers Care Shell Coremaker Name Role Phone Elsewhere, Pcp Primary Care Provider Unavailabl e Reason for Referral * Outpatient (Routine) - Closed Specialty Diagnoses / Procedures Referred By Nikki martin Referred To Contact Diagnoses Screening Mammogram Breast Cancer Procedures BI Breast Screening Bilateral with Tomosynthesis Nilo Angelo APRN, C.N.P. [address] [place] [address] [facility] Referral ID Status Reason Start Date Expiration Date Visits Re quested Visits Authorized [id number] Closed 12/22/2022 12/22/2023 1 1 Reason for Visit * Outpatient (Routine) - Closed Specialty Diagnoses / Procedures Referred By Nikki martin Referred To Contact Diagnoses Screening Mammogram Breast Cancer Procedures BI Breast Screening Bilateral with Tomosynthesis Nilo Angelo APRN, C.N.P. [address] [place] [address] [facility] Region Referral ID Status Reason Start Date Expiration Date Visits Re quested Visits Authorized [id number] Closed 12/22/2022 12/22/2023 1 1 Encounter Details Date Type Department Care Team (Latest Contact Info) Description 02/10/2023 12:27 PM CDT - 02/10/2023 11:59 PM CDT Hospital Encounter Department of Radiology in [place], [place] [address] [place] [address] Nilo Angelo APRN, CClarissaN.P. [address] [place] [address] Screening Mammogram Breast Cancer Discharge Disposition: Home or Self Care Social History Tobacco Use Types Packs/Day Years [...] often do you attend chur ch or yazidism services? More than 4 times per year 07/07/2022 Do you belong to any clubs o r organizations such as gnosticist groups, unions, fraternal or athletic groups, or [...] Answer Date Recorded PHQ-2 Score 0 11/13/2021 [facility] - Occupational Stress [...] PM CDT documented as of this encounter Medications at Time of Discharge Medication Sig Dispensed Refills Start Date End Date ascorbate calcium (VITAMIN C ORAL) Take 1 tablet by mouth every other day. [address] tablet Take 81 mg by mouth daily. 0 atenoloL (TENORMIN) 25 mg tablet Take 25 mg by mouth daily. 0 azithromycin (ZITHROMAX) 250 mg tablet Take 1 tablet (250 mg total) by mouth daily. Take 500 mg (2 tablets) by mouth the first day then 250 mg (1 tablet) by mouth for 4 more days. 6 tablet 0 04/10/2022 B complex-vitamins (BALANCE B-50) tablet Take 1 tablet by mouth daily. 0 calcium carbonate (CORAL CALCIUM ORAL) Take 1 tablet by mouth 2 (two) times a day. 500 mg. 0 05/15/2016 carboxymethylcellulos e (REFRESH TEARS) 0.5 % ophthalmic solution 1 drop 3 (three) times a day as needed for dry eyes. 0 ciclopirox (PENLAC) 8 % external solution APPLY 1 APPLICATION TOPICALLY NEEDED FOR TOE FUNGUS 6.6 mL 3 04/08/2022 cyclobenzaprine (FLEXERIL) 5 mg tablet Take 1 tablet by mouth as needed. 0 03/29/2021 docosahexanoic acid/epa (FISH OIL ORAL) Take 1 capsule by mouth 2 (two) times a day. 1200 mg. 0 05/15/2016 glucosam-chondroitin- diet cb25 116-100 mg capsule glucosamine-chondroit in one capsule daily 0 07/30/2013 ibuprofen (ADVIL,MOTRIN) 800 mg tablet Take 1 tablet by mouth as needed. 0 07/10/2020 MAGNESIUM ORAL Take 350 mg by mouth at bedtime. 0 melatonin 3 mg tablet Take 1 tablet by mouth at bedtime as needed. For sleep. 0 05/21/2017 multivitamin capsule Take 1 capsule by mouth daily. 0 polyethylene glycol (MIRALAX) 17 gram powder packet Take 17 g by mouth as needed. Dissolve each 17 g dose in 240 mLs (8 ounces) of beverage. 0 tretinoin (RETIN-A) 0.05 % cream Apply 1 application topically at bedtime. 45 g 11 07/11/2022 triamcinolone (KENALOG) 0.1 % ointment Apply 1 application topically 2 (two) times a day as needed for irritation or rash. Apply to affected areas of skin. DO NOT APPLY TO THE FACE. 30 g 1 04/10/2022 amLODIPine (NORVASC) 5 mg tablet Take 1 tablet (5 mg total) by mouth daily. 90 tablet 3 04/10/2022 02/23/2023 atorvastatin (LIPITOR) 10 mg tablet Take 1 tablet (10 mg total) by mouth daily. 90 tablet 3 04/10/2022 05/25/2023 esomeprazole (NexIUM) [address] capsule TAKE 1 CAPSULE BY MOUTH EVERY DAY IN THE MORNING BEFORE BREAKFAST 90 capsule 0 12/16/2022 03/15/2023 estradioL (CLIMARA) 0.05 mg/24 hr patch APPLY 1 PATCH TOPICALLY ONE TIME PER WEEK 12 patch 3 02/27/2022 03/17/2023 losartan (COZAAR) 100 mg tablet Take 1 tablet (100 mg total) by mouth daily. 90 tablet 3 04/10/2022 06/02/2023 valACYclovir (VALTREX) 1000 mg tablet TAKE 2 TABLETS (2,000 MG TOTAL) BY MOUTH NEEDED (COLD SORES) FOR UP TO 10 DAYS. 12 tablet 1 07/17/2021 06/02/2023 documented as of this encounter Plan of Treatment Upcoming Encounters Date Type Department Care Team (Latest Contact Info) Description 07/20/2023 12:36 PM CDT Hospital Encounter [facility] 02 4 AM ADMIT [address] [place] [address] Dahlia Guzman M.D. [address] [place] [address] 07/20/2023 12:36 PM CDT - 07/20/2023 5:47 PM CDT Surgery [facility] MAIN OR [address] [place] [address] Dahlia Guzman M.D. [address] [place] [address] ROBOTIC-ASSISTED VENTRAL HERNIA REPAIR Scheduled Procedures Name [...] Procedure Name Priority Date/Time Associated Diagnosis Comments BI BREAST SCREENING BILATERAL WITH TOMOSYNTHESIS RAD - Routine (most inpatients and all outpatients) 02/10/2023 1:04 PM CDT Screening Mammogram Breast Cancer documented in this encounter Results * BI Breast Screening Bilateral with Tomosynthesis (02/10/2023 1:04 PM CDT) Anatomical Region Laterality Modality Breast, Breast Imaging RST L OS, Breast Imaging ARZ LOS, Breast Imaging FLA LOS Bilateral Mammography 02/10/2023 3:08 PM CDT Impressions 02/10/2023 3:12 PM CDT Benign. RECOMMENDATION: ??Annual Screening Mammogram ASSESSMENT: ??BI-RADS: 2: Benign. Narrative 02/10/2023 3:12 PM CDT EXAM: ??BI BREAST SCREENING BILATERAL WITH TOMOSYNTHESIS Current study was evaluated with a Computer Aided Detection (CAD) system. INDICATION: ??Screening mammogram. COMPARISON: ??Prior exam(s) were available and reviewed for comparison. DENSITY: ??c. The breast(s) are heterogeneously dense, which may obscure small masses. FINDINGS: ??No mammographic findings of malignancy. Multiple, bilateral ??fluctuating circumscribed masses consistent with history of breast cysts. Stable calcifications bilaterally. Procedure Note Madison Merchant M.D. - 02/10/2023 EXAM: BI BREAST SCREENING BILATERAL WITH TOMOSYNTHESIS Current study was evaluated with a Computer Aided Detection (CAD) system. INDICATION: Screening mammogram. COMPARISON: Prior exam(s) were available and reviewed for comparison. DENSITY: c. The breast(s) are heterogeneously dense, which may obscuresmall masses. FINDINGS: No mammographic findings of malignancy. Multiple, bilateralfluctuating circumscribed masses consistent with history of breast cysts. Stable calcificationsbilaterally. IMPRESSION: Benign. RECOMMENDATION: Annual Screening Mammogram ASSESSMENT: BI-RADS: 2: Benign. Nilo Angelo APRN C.N.Andrés MAX BI PROC EDURES documented in this encounter Visit Diagnoses Diagnosis Screening Mammogram Breast Cancer Hernia Incisional Incontinence Urinary Stress Female documented in this encounter Care Teams Shell Coremaker Relationship Specialty Start Date End Date Elsewhere, Pcp PCP - General Internal Medicine 07/04/21 02/22/23 documented as of this encounter
--- OUTSIDE RECORDS SUMMARY | 2023-06-09 13:21 | XMS_ITS | Encounter Summary ---
Author Name Unknown Organization [facility] Address [address] [place] [address] Care Team Providers Care Glove Former Name Role Phone Elsewhere, Pcp Primary Care Provider Unavailabl e Encounter Details Date Type Department Care Team (Late st Contact Info) Description 10/10/2022 10:22 AM CDT Hospital Encounter Department of Laboratory Medicine in [address] [phone] Chuyita Washburn, JoseN.P. [address] [place] [phone] Abdominal Pain Discharge Disposition: Home or Self Care Social [...] often do you attend chur ch or caodaism services? More than 4 times per year 07/07/2022 Do you belong to any clubs o r organizations such as evangelical groups, unions, fraternal or athletic groups, or [...] Answer Date Recorded PHQ-2 Score 0 11/13/2021 [facility] of Occupat ional [facility] - Occupational Stress Questionnaire Answer Date [...] Take 81 mg by mouth daily. 0 azithromycin (ZITHROMAX) [...] IN THE MORNING BEFORE BREAKFAST 90 capsule 3 12/20/2021 12/16/2022 estradioL (CLIMARA) 0.05 mg/24 hr patch APPLY [...] 07/20/2023 12:36 PM CDT Hospital Encounter [facility] 02 4 AM ADMIT [address] [place] [address] Dahlia Guzman M.D. [address] [place] [address] 07/20/2023 12:36 PM CDT - 07/20/2023 5:47 PM CDT Surgery [facility] MAIN OR [address] [place] [address] Dahlia Guzman M.D. [address] [place] [address] ROBOTIC-ASSISTED VENTRAL HERNIA REPAIR Scheduled Procedures Name Priority Associated Diagnoses Date/Ti pa ROBOTIC-ASSISTED VENTRAL HERNIA REPAIR Hernia Incisional Incontinence [...] Procedure Name Priority Date/Time Associated Diagnosis Comments CREATININE WITH EGFR, S/P Routine 10/10/2022 10:42 AM CDT Abdominal Pain documented in this encounter Results * Creatinine with Estimated GFR (10/10/2022 10:42 AM CDT) Creatinine 0.85 0.59 - 1.04 mg/dL 10/10/2022 11:06 AM CDT [facility] Estimated GFR (eGFR) 71 >=60 mL/min/BSA 10/10/2022 11:06 AM CDT [facility] Comment: Estimated GFR calculated using the 2020 CKD_EPI creatinine equation. Blood (Blood, Venous) 10/10/2022 10:42 AM CDT 10/10/2022 10:43 AM CDT Chuyita Washburn C.N.P. LAB BLOOD ADD- ON [facility] [address] [facility] [place] [address], [facility] [place] [address] [place] [address] documented in this encounter Visit Diagnoses Diagnosis Abdominal Pain Hernia Incisional Incontinence Urinary Stress Female documented in this encounter Care Teams Glove Former Relationship Specialty Start Date End Date Elsewhere, Pcp PCP - General Internal Medicine 07/04/21 02/22/23 documented as of this encounter
--- OUTSIDE RECORDS SUMMARY | 2023-06-09 13:21 | XMS_ITS | Encounter Summary ---
Author Name Unknown Organization [facility] Address [address] [place] [address] Care Team Providers Care Housing And Residence Life Director Name Role Phone Elsewhere, Pcp Primary Care Provider Unavailabl e Reason for Visit * Reason Onset Date Comments Pre-visit Intake 02/23/2023 Encounter Details Date Type Department Care Team (Latest Contact Info) Description 02/23/2023 8:15 AM CDT Clinical Communication Virtual Review in [place], [place] [address] [place], [place] [phone] Pre-visit Intake Social History Tobacco Use Types [...] often do you attend chur ch or mandaen services? More than 4 times per year [...] Answer Date Recorded PHQ-2 Score 0 11/13/2021 [facility] of Occupat ional Health - Occupational [...] place to sleep or slept in a half-way (including now)? No 07/07/2022 Nutrition Answer Date [...] [facility] 02 4 AM ADMIT [address] [place] [address] Dahlia Guzman M.D. [address] [place] [phone] 07/20/2023 12:36 PM CDT - 07/20/2023 5:47 PM CDT Surgery RST [facility] MAIN OR [address] [place] [phone] Dahlia Guzman M.D. [address] [place] [address] ROBOTIC-ASSISTED VENTRAL HERNIA REPAIR Scheduled Procedures Name Priority Associated Diagnoses Date/Ti va ROBOTIC-ASSISTED VENTRAL HERNIA REPAIR Hernia Incisional Incontinence [...] on filedocumented in this encounter Care Teams Housing And Residence Life Director Relationship Specialty Start Date End Date Elsewhere, Pcp PCP - General Internal Medicine 02/23/23 Chuyita Washburn [address] [place] [address] External Primary Care Physician Family Medicine 02/23/23 documented as of this encounter
--- OUTSIDE RECORDS SUMMARY | 2023-06-09 13:21 | XMS_ITS | Encounter Summary ---
Author Name Unknown Organization [facility] Address [address] [place] [address] Care Team Providers Care Housekeeping Department Worker Name Role Phone Elsewhere, Pcp Primary Care Provider Unavailabl e Reason for Visit * Reason Onset Date Comments Rx Denial 07/18/2022 TRETINOIN CRE 0. 05% Encounter Details Date Type Department Care Team (Latest Contact Info) Description 07/18/2022 Clinical Communication Pharmacy Prior Auth LIANA [phone] Ji Fowler Rx Denial (TRETINOIN CRE 0.05%) Social History Tobacco Use Types Packs/Day Years [...] How often do you attend chur or orthodox services? More than 4 times per year [...] Date Recorded PHQ-2 Score 0 11/13/2021 [facility] - Occupational Stress Questionnaire Answer [...] place to sleep or slept in a correction (including now)? No 07/07/2022 Nutrition Answer Date [...] PM CDT documented as of this encounter Miscellaneous Notes * Telephone Encounter - Ji Fowler - 07/18/2022 8:38 AM CDT Images from the original note were not included. The patient's health insurer has denied prior authorization for TRETINOIN CRE 0.05%. A quick view of the denial reason is in this communication message. To view the denial letter: 1. Go to Snapshot 2. Go to the purple Medications box 3. Click on the blue Prior Authorizations link 4. Under Denied, click on the blue medication link to open and view the attachment. As the prescriber, your options are: Appeal the decision to the insurer directly (see denial letter for how to appeal). Write a new Rx for an alternative medication therapy. Release the Rx to the pharmacy so the patient can pay out of pocket if they desire. To Release Rx: Open this encounter, go to Meds & Orders, click on the medication, and click theblue ???Release Rx?? button. PLEASE NOTE: If the ???Release Rx?? button is not visible, the Rx has already been released to thepharmacy. If you have questions, please reply via QuickNote to Luis SANTIZO. Thank you, The OPPA Team documented in this encounter Plan of Treatment Upcoming Encounters Date Type Department Care Team (Latest Contact Info) Description 07/20/2023 12:36 PM CDT Hospital Encounter [facility]ST [facility] 02 4 AM ADMIT [address] [place] [address] Dahlia Guzman M.D. [address] [place] [address] 07/20/2023 12:36 PM CDT - 07/20/2023 5:47 PM CDT Surgery [facility] MAIN OR [address] [place] [address] Dahlia Guzman M.D. [address] [place] [address] ROBOTIC-ASSISTED VENTRAL HERNIA REPAIR Scheduled Procedures Name [...] on filedocumented in this encounter Care Teams Housekeeping Department Worker Relationship Specialty Start Date End Date Elsewhere, Pcp PCP - General Internal Medicine 07/04/21 02/22/23 documented as of this encounter
--- OUTSIDE RECORDS SUMMARY | 2023-06-09 13:21 | XMS_ITS | Encounter Summary ---
Author Name Unknown Organization [facility] Address [address] [place] [id number] Care Team Providers Care Redrawer Name Role Phone Elsewhere, Pcp Primary Care Provider Unavailabl e Reason for Referral * Outpatient (Routine) - Closed Specialty Diagnoses / Procedures Referred By Contac t Referred To Contact General Surgery Diagnoses Hernia Incisional Duong Giraldo M.D. [address] [place] [phone] [facility] Referral ID Status Reason Start Date Expiration Date Visits Re quested Visits Authorized [id number] Closed 02/25/2023 02/25/2024 1 1 Scheduling Instructions Please schedule w/[facility] surgeon for combined case with ECT. Reason for Visit * Outpatient (Routine) - Closed Specialty Diagnoses / Procedures Referred By Contac t Referred To Contact Obstetrics and Gynecology Diagnoses Incontinence Urinary Stress Female Duong Giraldo M.D. [address] [place] [phone] [facility] Referral ID Status Reason Start Date Expiration Date Visits Re quested Visits Authorized [id number] Closed 12/18/2022 12/18/2023 1 1 Encounter Details Date Type Department Care Team (Latest Contact Info) Description 02/25/2023 3:00 PM CDT Comprehensive Visit Department of Obstetrics and Gynecology, Division of Urogynecology in [place], [place] [address] [place] [phone] Duong Giraldo M.D. [address] [place] [address] Hernia Incisional (Primary Dx); Incontinence Urinary Stress Female Social History Tobacco Use Types Packs/Day Years [...] week 07/07/2022 How often do you attend [facility] or presybeterian services? More than 4 times per year 07/07/2022 Do you belong to any clubs o r organizations such as episcopal groups, unions, fraternal or athletic groups, or [...] Answer Date Recorded PHQ-2 Score 0 11/13/2021 [facility] - Occupational Stress Questionnaire Answer Date [...] PM CDT documented as of this encounter Consult Notes * Duong Giraldo M.D. - 02/25/2023 3:00 PM CDT SUBJECTIVE REFERRING PROVIDER Duong Giraldo M.D. REASON FOR VISIT Consult HISTORY OF PRESENT CONDITION Ms. Elizondo is a 77 y.o. with a prior history of pelvic organ prolapse status post abdominal hysterectomy, bilateral salpingectomy, sacral colpopexy and posterior repair in 2019 who returns due to stress urinary incontinence. Patient notes that she developed stress urinary incontinence about 1 month after her surgery in 2019. She will leak with laughing, coughing, sneezing and exercise approximately 4 times daily. She denies symptoms of urgency. She has been managing her urinary incontinence with the poise impressa, but is planning to travel more in the next year and wants more definitive treatment for her leakage. She does endorse positional voiding, but feels she can empty completely. Shehas regular bowel movements, using Fleet enemas when necessary for constipation. She is not currently sexually active as her underwent prostate surgery about a year and a half ago. She does not have any symptoms of a vaginal bulge. Notably, the patient has an incisional hernia and is planning ventral hernia repair. She would liketo undergo a procedure for her stress urinary incontinence at the same time as her ventral hernia repair. PMH: GERD, osteopenia, osteoarthritis, hypertension, hyperlipidemia, IBS PSH: Appendectomy, JIMMIE, BS, sacral colpopexy, posterior repair FH: Noncontributory SH: Nonsmoker HISTORY REVIEW The following portions of the patient's history were reviewed and updated as appropriate: allergies, current medications, family history, medical history, social history, surgical history and problemlist. Review of sytems: Constitution: Denies fever, weight loss or night sweats Skin: Denies rashes Eyes: Double vision Respiratory: Denies SOB or chronic cough. Cardiovascular: Denies chest pain, pressure or tightness GI: Occasional constipation : Urinary incontinence Hematology: Denies easy bruising or bleeding issues Musc: Denies back pain. Neuro: Denies weakness or tingling in arms or legs. Psychiatry: Denies loud snoring or stopping breathing, chocking or gasping while sleep OBJECTIVE VITAL SIGNS There were no vitals filed for this visit. PHYSICAL EXAM Constitutional: She is oriented to person place and time. She appears well nourished and well developed. Eyes: No scleral icterus. Pulmonary/chest: Effort normal. No accessory muscle usage. No respiratory distress. Neurological: She is alert and oriented to person place and time. Skin: no pallor. Psychiatric: She has normal mood and affect. Genitourinary: Deferred LABORATORY: I reviewed the patient outside records (summarized in HPI), labs, urodynamic testing, and imaging and discuss them with the patient. Urodynamics revealed a mildly flattened flow curve with 1 interruption. Positive stress urinary incontinence of moderate amounts. No detrusor instability demonstrated. Patient voided to a negligible postvoid residual. ASSESSMENT / PLAN #1 Stress urinary incontinence #2 Ventral hernia Reviewed with the patient treatment options for her ongoing incontinence including observation, nonsurgical and surgical options. We discussed polypropylene slings versus Bulkamid versus other abdominal procedures (Simpson versus autologous rectus fascia slings) and risks and benefits with each approa ch. I also reviewed FDA warnings in 2007 and 2010 regarding vaginal mesh kits for prolapse repairs and compared and contrasted these kits with polypropylene mesh for mid urethral slings. Explained atlength that the FDA warnings and recent recall was specific to vaginal mesh kits and did not extendto abdominal prolapse repairs or incontinence procedures. After a thorough discussion the patient opted to undergo a cystoscopic Bulkamid urethral bulking procedure. Risks, benefits, and alternatives of the procedure were reviewed at length with the patient including bleeding (sometimes necessitating a blood transfusion), postoperative pain and infection, damage to surrounding organs, persistent incontinence, incomplete bladder emptying, and exacerbation/de mark overactive bladder symptoms. Discussed advance directives and the necessity of other members of the healthcare team, both male and female, participating in the procedure. All questions answered and consent given. Regarding her ventral hernia I will send her to 1 of her general surgery colleagues and will plan to do a combined procedure prior to the end of the year. Duong Giraldo MD documented in this encounter Plan of Treatment Upcoming Encounters Date Type Department Care Team (Latest Contact Info) Description 07/20/2023 12:36 PM CDT Hospital Encounter [facility] 02 4 AM ADMIT [address] [place] [address] Dahlia Guzman M.D. [address] [place] [address] 07/20/2023 12:36 PM CDT - 07/20/2023 5:47 PM CDT Surgery [facility]ST [facility] MAIN OR [address] [place] [address] Dahlia Guzman M.D. [address] [place] [address] ROBOTIC-ASSISTED VENTRAL HERNIA REPAIR Scheduled Procedures Name [...] Scheduled Referrals Name Type Priority Associated Diagnoses Orde r Schedule General Surgery - Hernia consult (clinic) Outpatient Referral Routine Hernia Incisional Expected: 02/25/2023 (Approximate), Expires: 05/28/2024 documented as of this encounter Visit Diagnoses Diagnosis Hernia Incisional- Primary Incontinence Urinary Stress Female Hernia Incisional Incontinence Urinary Stress Female documented in this encounter Care Teams Redrawer Relationship Specialty Start Date End Date Elsewhere, Pcp PCP - General Internal Medicine 02/23/23 Chuyita Washburn [address] [place] [address] External Primary Care Physician Family Medicine 02/23/23 documented as of this encounter
--- OUTSIDE RECORDS SUMMARY | 2023-06-09 13:21 | XMS_ITS | Encounter Summary ---
Author Name Unknown Organization [facility] Address [address] [place] [address] Care Team Providers Care Chip Mucker Name Role Phone Elsewhere, Pcp Primary Care Provider Unavailabl e Reason for Visit * Reason Comments Consult Abdominal hernia * Outpatient (Routine) - Closed Specialty Diagnoses / Procedures Referred By Contac t Referred To Contact General Surgery Diagnoses Unspecified Abdominal Hernia Without Obstruction Or Gangrene Chuyita Washburn, C.N.P. [address] [place] [address] [facility] Region Referral ID Status Reason Start Date Expiration Date Visits Re quested Visits Authorized [id number] Closed 11/20/2022 11/20/2023 1 1 Encounter Details Date Type Department Care Team (Late st Contact Info) Description 12/08/2022 1:00 PM CDT Comprehensive Visit Department of General Surgery in [place], [place] [address] [place] [phone] Dakota Robles M.D. [address] [place] [phone] Hernia Incisional (Primary Dx) Discharge Disposition: Home or Self Care Social History Tobacco Use Types Packs/Day Years Used Date Smoking Tobacco: Never Smokeless Tobacco: Never Tobacco Cessation:Counseling Given: Not Answered Alcohol Use Standard Drinks/Week Comments No 0 [...] week 07/07/2022 How often do you attend [facility] or christianity services? More than 4 times per year 07/07/2022 Do you belong to any clubs o r organizations such as alevism groups, unions, fraternal or athletic groups, or [...] place to sleep or slept in a intermediate (including now)? No 07/07/2022 Nutrition Answer Date [...] CDT Temperature 37.4 ??C (99.3 ??F) 12/08/2022 1 2:48 PM CDT Respiratory Rate - - Oxygen Saturation - - Inhaled Oxygen Concentration - - Weight 68.8 kg (151 lb 10.8 oz) 023 12:48 PM CDT Height 162 cm (5' 3.78) 12/08/2022 12: 48 PM CDT Body Mass Index 26.22 12/08/2022 12:48 PM CDT documented in this encounter Consult Notes * Dakota Robles M.D. - 12/08/2022 1:00 PM CDT GENERAL SURGERY CONSULTATION REASON FOR CONSULT Evaluation of Consult (Abdominal hernia). She was referred by Chuyita Washburn C.N.P. SUBJECTIVE HISTORY OF PRESENT ILLNESS Ms. Elizondo is a 77 y.o. female who presents to clinic today for evaluation of an abdominal wall hernia in the lower abdomen. The patient has recently noticed bulging in the right lower quadrant of her abdomen. She has not had any associated pain related to the hernia. She does not feel her activities are limited. The hernia does seem to be getting larger over time. It is in the vicinity of previous abdominal and pelvic surgery. In 2019, the patient underwent a laparotomy, hysterectomy, bilateral salpingectomy, sacral colpopexy, and laparoscopic cholecystectomy. She has Ultrapro mesh implanted in her pelvis. The patient doesnot smoke. She is not on anticoagulation. She does not take steroids or chronic immunosuppressants.She does not have diabetes mellitus. The patient has never undergone a hernia repair before. Patient Active Problem List Diagnosis Impaired Fasting Glucose Cough Unspecified Type Hypertension Essential Primary Gallstone Gastroesophageal Reflux Disease NOS Irritable Bowel Syndrome Without Diarrhea Prolapse Uterine Osteopenia Skin Cancer (Primary) NOS Hirsutism Alopecia Androgenetic Primary Osteoarthritis Hip Bilateral Chondromalacia Patella Left Bunion Left Bunion Right Pain Low Back Mechanical Cancer Skin Basal Cell Personal History Reflux Esophageal Incontinence Urinary Stress Female COVID-19 Infection Hyperlipidemia Past Surgical History: Procedure Laterality Date APPENDECTOMY 1970 BLADDER SURGERY BLEPHAROPLASTY Bilateral 2012 CHOLECYSTECTOMY N/A 08/30/2018 Procedure: Cholecystectomy, laparoscopic.; Surgeon: [...] Open Abdomen.; Surgeon: Duong Giraldo M.D.; Location: [facility] OTHER 1969 repair of a perforated uterus from removal of an IUD PHACOEMULSIFICATION CATARACT WITH INTRAOCULAR LENS IMPLANTATION Right 08/15/2021 Procedure: Phacoemulsification Cataract with Intraocular Lens Implantation RT; Surgeon: Tyree Rucker M.D.; Location: [facility] OR PHACOEMULSIFICATION CATARACT WITH INTRAOCULAR LENS IMPLANTATION Left 08/29/2021 Procedure: Phacoemulsification Cataract with Intraocular Lens Implantation; Surgeon: Tyree Rucker M.D.; Location: [facility] OR SACROCOLPOPEXY ABDOMINAL N/A 08/30/2018 Procedure: Sacrocolpopexy Abdominal.; Surgeon: Duong Giraldo M.D.; Location: [facility] OR Allergies Allergen Reactions Cephalexin Rash Glucagon Hives (Reselect Reaction) and Rash Penicillins Rash Sulfa (Sulfonamide Antibiotics) Rash Current Outpatient Medications: ascorbate calcium (VITAMIN C ORAL), Take 1 tablet by mouth every other day. , Disp: , Rfl: aspirin [address] tablet, Take 81 mg by mouth daily., Disp: , Rfl: atorvastatin (LIPITOR) 10 mg tablet, Take 1 tablet (10 mg total) by mouth daily., Disp: 90 tablet, Rfl: 3 B complex-vitamins (BALANCE B-50) tablet, Take 1 tablet by mouth daily., Disp: , Rfl: calcium carbonate (CORAL CALCIUM ORAL), Take 1 tablet by mouth 2 (two) times a day. 500 mg., Disp: , Rfl: carboxymethylcellulose (REFRESH TEARS) 0.5 % ophthalmic solution, 1 drop 3 (three) times a day as needed for dry eyes., Disp: , Rfl: ciclopirox (PENLAC) 8 % external solution, APPLY 1 APPLICATION TOPICALLY NEEDED FOR TOE FUNGUS, Disp: 6.6 mL, Rfl: 3 cyclobenzaprine (FLEXERIL) 5 mg tablet, Take 1 tablet by mouth as needed., Disp: , Rfl: docosahexanoic acid/epa (FISH OIL ORAL), Take 1 capsule by mouth 2 (two) times a day. 1200 mg., Disp: , Rfl: esomeprazole (NexIUM) [address] capsule, TAKE 1 CAPSULE BY MOUTH EVERY DAY IN THE MORNING BEFORE BREAKFAST, Disp: 90 capsule, Rfl: 3 estradioL (CLIMARA) 0.05 mg/24 hr patch, APPLY 1 PATCH TOPICALLY ONE TIME PER WEEK, Disp: 12 patch,Rfl: 3 pxglqhkz-xqknayiywhx-srxt cb25 116-100 mg capsule, glucosamine-chondroitin one capsule daily, Disp:, Rfl: ibuprofen (ADVIL,MOTRIN) 800 mg tablet, Take 1 tablet by mouth as needed., Disp: , Rfl: losartan (COZAAR) 100 mg tablet, Take 1 tablet (100 mg total) by mouth daily., Disp: 90 tablet, Rfl: 3 MAGNESIUM ORAL, Take 350 mg by mouth at bedtime. , Disp: , Rfl: melatonin 3 mg tablet, Take 1 tablet by mouth at bedtime as needed. For sleep., Disp: , Rfl: multivitamin capsule, Take 1 capsule by mouth daily., Disp: , Rfl: polyethylene glycol (MIRALAX) 17 gram powder packet, Take 17 g by mouth as needed. Dissolve each 17g dose in 240 mLs (8 ounces) of beverage. , Disp: , Rfl: triamcinolone (KENALOG) 0.1 % ointment, Apply 1 application topically 2 (two) times a day as neededfor irritation or rash. Apply to affected areas of skin. DO NOT APPLY TO THE FACE., Disp: 30 g, Rfl: 1 amLODIPine (NORVASC) 5 mg tablet, Take 1 tablet (5 mg total) by mouth daily. (Patient not taking: Reported on 12/08/2022), Disp: 90 tablet, Rfl: 3 atenoloL (TENORMIN) 25 mg tablet, Take 25 mg by mouth daily., Disp: , Rfl: azithromycin (ZITHROMAX) 250 mg tablet, Take 1 tablet (250 mg total) by mouth daily. Take 500 mg (2tablets) by mouth the first day then 250 mg (1 tablet) by mouth for 4 more days. (Patient not taking: Reported on 12/08/2022), Disp: 6 tablet, Rfl: 0 tretinoin (RETIN-A) 0.05 % cream, Apply 1 application topically at bedtime., Disp: 45 g, Rfl: 11 valACYclovir (VALTREX) 1000 mg tablet, TAKE 2 TABLETS (2,000 MG TOTAL) BY MOUTH NEEDED (COLD SORES) FOR UP TO 10 DAYS. (Patient not taking: Reported on 12/08/2022), Disp: 12 tablet, Rfl: 1 Family History Problem Relation Age of Onset Migraines Mother Macular degeneration Mother Migraines Brother Carotid artery disease Brother Transient ischemic attack Brother Aortic dissection Brother Macular degeneration Brother No Known Problems Sister Carotid artery disease Brother Skin cancer Brother Transient ischemic attack Brother Amblyopia Neg Hx Blindness Neg Hx Cataracts Neg Hx Glaucoma Neg Hx Retinal degeneration Neg Hx Retinal detachment Neg Hx Strabismus Neg Hx Vision loss Neg Hx Social History Socioeconomic History Marital status: Spouse name: David Elizondo Number of children: 3 Years of education: 12 Highest education level: 12th grade Occupational History Occupation: retired Comment: She worked as a medical office receptionist most recently. Tobacco Use Smoking status: Never Smokeless tobacco: Never Vaping Use Vaping Use: never used Substance and Sexual Activity Alcohol use: No Drug use: No Sexual activity: Yes Partners: Male control/protection: Post-menopausal Other Topics Concern Caffeine Concern Not Asked Social History Narrative She lives with her in a two-story house in [place]. 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 She has a high school education. She travels regularly to distant places with her . Social Determinants of Health Financial Resource Strain: Low Risk (07/07/2022) Overall Financial Resource Strain (CARDIA) Difficulty of Paying Living Expenses: Not hard at all Food Insecurity: No Food Insecurity (07/07/2022) Hunger Vital Sign Worried About Running Out of Food in the Last Year: Never true Ran Out of Food in the Last Year: Never true Transportation Needs: No Transportation Needs (07/07/2022) PRAPARE - Transportation Lack of Transportation (Medical): No Lack of Transportation (Non-Medical): No Physical Activity: Unknown (07/07/2022) Exercise Vital Sign Days of Exercise per Week: Patient refused Minutes of Exercise per Session: Patient refused Intimate Partner Violence: Not At Risk (07/07/2022) Humiliation, Afraid, Rape, and Kick questionnaire Fear of Current or Ex-Partner: No Emotionally Abused: No Physically Abused: No Sexually Abused: No Housing Stability: Low Risk (07/07/2022) Housing Stability Vital Sign Unable to Pay for Housing in the Last Year: No Number of Places Lived in the Last Year: 1 Unstable Housing in the Last Year: No REVIEW OF SYSTEMS A full 14 point review of systems was reviewed with the patient. Systems reviewed include: General,HENT, Eyes, Cardiovascular, Respiratory, Gastrointestinal, Genitourinary, Skin, Musculoskeletal, Endocrine, Hematologic, Neurologic, Psychiatric and Allergic. All pertinent items are listed in the His tory of Present Illness, Past Medical History and Past Surgical History. Patient also notes: Genitourinary: Positive for incontinence. The following systems were negative: Constitutional, Skin, Eyes, ENT, Respiratory, Cardiovascular, Gastrointestinal, Hematologic, Musculoskeletal, Neurological, Psychiatric All other systems are negative. OBJECTIVE PHYSICAL EXAM Vitals: 12/08/22 1248 BP: 138/67 Pulse: 73 Temp: 37.4 ??C Height: 162 cm Weight: 68.8 kg TempSrc: Temporal Estimated body mass index is 26.22 kg/m?? as calculated from the following: Height as of this encounter: 162 cm. Weight as of this encounter: 68.8 kg. GENERAL: Well-developed, well-nourished. In no acute distress. Sitting comfortably in examination room. HEENT: Head is atraumatic, normocephalic. Symmetrical features. External ears and nose normal. Moist mucous membranes. No pharyngeal erythema. EYES: Pupils equal, round, reactive to light. Extraocular motion intact. No scleral icterus. CARDIOVASCULAR: Heart is regular rate and rhythm. Normal S1/S2. No murmurs. LUNGS: Normal respiratory effort. No wheezes, crackle, or rales. No cough. CHEST: No deformities. No tenderness. ABDOMEN: Abdomen is soft. Non-distended. No masses or organomegaly detected. Non-tender. Palpable and reducible abdominal wall hernia in the suprapubic midline, with extension of hernia sac to the right. Nontender. Fascial defect approximately 3 cm. Overlying infraumbilical midline scar. MUSCULOSKELETAL: Moves all extremities. No deformities or lesions. No peripheral edema. SKIN: Warm and dry. No rashes or jaundice. NEUROLOGIC: Alert and oriented x3. Cranial nerves 2 through 12 grossly intact. Normal strength and sensation in all four extremities. PSYCHIATRIC: Normal affect. Pleasant and cooperative. Diagnostics LABORATORY: Reviewed in the electronic medical record under laboratory tab. IMAGING: Abdomen/pelvis: Cholecystectomy. Multiple circumscribed hepatic hypodensities are similar to prior likely cysts. The spleen, adrenals, and pancreas are normal in appearance. Right renal cortical scarring. Right renal cysts and additional subcentimeter renal hypodensities bilaterally which are likely cysts though too small to definitively characterize. Colonic diverticulosis. No evidence of acute diverticulitis. Small bowel loops are unremarkable. Fat-containing hernia along the lower abdomen/upper pelvis hernia defect measuring approximately 2 cm. Atherosclerotic vascular disease. ASSESSMENT / PLAN Diagnosis Plan 1. Hernia Incisional General Surgery Referral DME Miscellaneous (Free Text Entry) (Non-Medicare Covered): abdominal binder/hernia belt I discussed the pathophysiology of hernias with the patient. Findings are consistent with an incisional hernia related to her previous surgery. Treatment options include watchful waiting versus surgical repair. If the patient chose to undergo hernia repair, a mesh repair would be necessary. She would prefer this be performed laparoscopically, but given the previous bladder surgery, short distanceto the pubic symphysis inferiorly, as well as the rectus muscle diastasis, I do not think an adequate repair could be performed laparoscopically. I recommend the patient undergo ventral hernia repairwith mesh. This would likely entail a 23 hour postoperative hospital stay. The procedure details, expected recovery, postoperative activity restrictions, and potential complications were discussed. Complications discussed include bleeding, infection, bowel injury, bladder injury, mesh reaction, nerve injury, chronic pain, seroma formation, hematoma formation, hernia recurrence, anesthesia reaction, perioperative myocardial infarction, blood clots, respiratory failure, and stroke. The patient is reluctant to undergo open hernia repair. I have discussed symptom management with her, and provided a prescription for an abdominal binder. There are no absolute indications that she needs this hernia fixed, as it is not causing her pain, limiting her activities, does not contain bowel, and she has no history of incarceration. One option may be robotic assisted laparoscopic hernia repair. I will discuss this with my colleagues who perform this procedure and let the patient know if this may be an option for her. She will contact me with any questions or concerns. Dakota Robles M.D. documented in this encounter Plan of Treatment Upcoming Encounters Date Type Department Care Team (Latest Contact Info) Description 07/20/2023 12:36 PM CDT Hospital Encounter [facility] 02 4 AM ADMIT [address] [place] [address] Dahlia Guzman M.D. [address] [place] [address] 07/20/2023 12:36 PM CDT - 07/20/2023 5:47 PM CDT Surgery [facility] [address] [place] [address] Dahlia Guzman M.D. [address] [place] [address] ROBOTIC-ASSISTED VENTRAL HERNIA REPAIR Scheduled Procedures Name Priority Associated Diagnoses Date/Ti il ROBOTIC-ASSISTED VENTRAL HERNIA REPAIR Hernia Incisional Incontinence Urinary Stress Female 07/20/2023 12:36 PM CDT TRANSPOSITION MUSCLE FLAP POSTERIOR TRUNK Hernia Incisional Incontinence Urinary Stress Female 07/20/2023 12:36 PM CDT INSERTION RETROPUBIC SYNTHETIC MIDURETHRAL SLING Hernia Incisional Incontinence Urinary Stress Female 07/20/2023 12:36 PM CDT PERIURETHRAL/TRANSURETHRAL BULKING AGENT Incontinence Urinary Stress Female documented as of this encounter Visit Diagnoses Diagnosis Hernia Incisional- Primary Hernia Incisional Incontinence Urinary Stress Female documented in this encounter Care Teams Chip Mucker Relationship Specialty Start Date End Date Elsewhere, Pcp PCP - General Internal Medicine 07/04/21 02/22/23 documented as of this encounter
--- OUTSIDE RECORDS SUMMARY | 2023-06-09 13:21 | XMS_ITS | Encounter Summary ---
Author Name Unknown Organization [facility] Address [address] [place] [address] Care Team Providers Care Engraving Supervisor Name Role Phone Elsewhere, Pcp Primary Care Provider Unavailabl e Reason for Referral * MRI/CAT/PET Scan (Routine) - Closed Specialty Diagnoses / Procedures Referred By Contac t Referred To Contact Radiology Diagnoses Pain Right Lower Quadrant Other Specified Abdominal Hernia With Obstruction Without Gangrene Procedures CT Abdomen Pelvis with IV Contrast Chuyita Washburn, C.N.P. [address] [place] [address] [facility] Region Referral ID Status Reason Start Date Expiration Date Visits Re quested Visits Authorized [id number] Closed 09/17/2022 09/17/2023 1 1 Reason for Visit * MRI/CAT/PET Scan (Routine) - Closed Specialty Diagnoses / Procedures Referred By Contac t Referred To Contact Radiology Diagnoses Pain Right Lower Quadrant Other Specified Abdominal Hernia With Obstruction Without Gangrene Procedures CT Abdomen Pelvis with IV Contrast Chuyita Washburn, C.N.P. [address] [place] [address] [facility] Region Referral ID Status Reason Start Date Expiration Date Visits Re quested Visits Authorized [id number] Closed 09/17/2022 09/17/2023 1 1 Encounter Details Date Type Department Care Team (Late st Contact Info) Description 10/10/2022 10:23 AM CDT - 10/10/2022 11:59 PM CDT Hospital Encounter Department of Radiology in [place], [place] [address] [place] [phone] Chuyita Washburn C.NClarissaP. [address] [place] [address] Pain Right Lower Quadrant; Other Specified Abdominal Hernia With Obstruction Without Gangrene Discharge Disposition: Home or Self Care Social [...] often do you attend chur ch or protestant services? More than 4 times per year 07/07/2022 Do you belong to any clubs o r organizations such as mandaeism groups, unions, fraternal or athletic groups, or [...] Answer Date Recorded PHQ-2 Score 0 11/13/2021 [facility] - Occupational [...] 07/20/2023 12:36 PM CDT Hospital Encounter [facility] 02 4 AM ADMIT [address] [place] [address] Dahlia Guzman M.D. [address] [place] [address] 07/20/2023 12:36 PM CDT - 07/20/2023 5:47 PM CDT Surgery [facility] [address] [place] [address] Dahlia Guzman M.D. [address] [place] [address] ROBOTIC-ASSISTED VENTRAL HERNIA REPAIR Scheduled Procedures Name [...] Procedure Name Priority Date/Time Associated Diagnosis Comments CT ABDOMEN PELVIS WITH IV CONTRAST RAD - Routine (most inpatients and all outpatients) 10/10/2022 11:52 AM CDT Pain Right Lower Quadrant Other Specified Abdominal Hernia With Obstruction Without Gangrene documented in this encounter Results * CT Abdomen Pelvis with IV Contrast (10/10/2022 11:52 AM CDT) Anatomical Region Laterality Modality Abdomen, Pelvis, Abdominal R ST LOS, Abdominal ARZ LOS, Abdominal FLA LOS N/A Computed Tomography 10/10/2022 11:5 0 AM CDT Impressions 10/10/2022 1:07 PM CDT 1. ??Fat-containing hernia along the lower anterior abdominal wall. Narrative 10/10/2022 1:07 PM CDT EXAM: CT ABDOMEN PELVIS WITH IV CONTRAST COMPARISON: December 02, 2020 FINDINGS: Imaged lower thorax: Unremarkable. Abdomen/pelvis: Cholecystectomy. Multiple circumscribed hepatic hypodensities are [...] measuring approximately 2 cm. Atherosclerotic vascular disease. Bones: No acute osseous abnormality. Degenerative changes of the spine. Procedure Note David Saini M.D. - 10/10/2022 EXAM: CT ABDOMEN PELVIS WITH IV CONTRAST COMPARISON: December 02, 2020 FINDINGS: Imaged lower thorax: Unremarkable. Abdomen/pelvis: Cholecystectomy. Multiple circumscribed hepatichypodensities are similar to prior likely cysts. The spleen, adrenals, and pancreas are normal in appearance.Right renal cortical scarring. Right renal cysts and additional subcentimeter renalhypodensities bilaterally which are likely cysts though too small to definitively characterize. Colonicdiverticulosis. No evidence of acute diverticulitis. Small bowel loops are unremarkable. Fat-containinghernia along the lower abdomen/upper pelvis hernia defect measuring approximately 2 cm.Atherosclerotic vascular disease. Bones: No acute osseous abnormality. Degenerative changes of the spine. IMPRESSION: 1. Fat-containing hernia along the lower anterior abdominal wall. Chuyita MAX CT PROCEDU RES documented in this encounter Visit Diagnoses Diagnosis Pain Right Lower Quadrant Other Specified Abdominal Hernia With Obstruction Without Gangrene Hernia Incisional Incontinence Urinary Stress Female documented in this encounter Administered Medications Inactive Administered Medications - up to 3 most recent administrations Medication Order MAR Action Action Date Dose Rate Site iohexoL 300 mg iodine/mL solution 99 mL (OMNIPAQUE) 99 mL, intravenous, Once in imaging, contrast, Starting on Thu10/10/22 at 1107, For 1 dose, If administered oral then dilute in 900 mL water Given 10/10/2022 11:45 AM CDT 99 mL sodium chloride 0.9 % flush 75 mL 75 mL, intravenous, Once in imaging, line care, Starting on Thu10/10/22 at 1107, For 1 dose Given 10/10/2022 11:44 AM CDT 75 mL sodium chloride 0.9 % injection 10 mL 10 mL, intravenous, Once in imaging, line care, Starting on Thu10/10/22 at 1107, For 1 dose Given 10/10/2022 11:44 AM CDT 10 mL documented in this encounter Care Teams Engraving Supervisor Relationship Specialty Start Date End Date Elsewhere, Pcp PCP - General Internal Medicine 07/04/21 02/22/23 documented as of this encounter
--- OUTSIDE RECORDS SUMMARY | 2023-06-09 13:21 | XMS_ITS | Encounter Summary ---
Author Name Unknown Organization [facility] Address [address] [place] [address] Care Team Providers Care Pattern Molder Name Role Phone Elsewhere, Pcp Primary Care Provider Unavailabl e Reason for Referral * Outpatient (Routine) - Closed Specialty Diagnoses / Procedures Referred By Contac t Referred To Contact Obstetrics and Gynecology Diagnoses Incontinence Urinary Stress Female Duong Giraldo M.D. [address] [place] [address] [facility] Referral ID Status Reason Start Date Expiration Date Visits Re quested Visits Authorized [id number] Closed 12/18/2022 12/18/2023 1 1 * Outpatient (Routine) - Closed Specialty Diagnoses / Procedures Referred By Contac t Referred To Contact Diagnoses Incontinence Urinary Stress Female Procedures OBG Urodynamic Studies Duong Giraldo M.D. [address] [place] [address] [facility] Referral ID Status Reason Start Date Expiration Date Visits Re quested Visits Authorized [id number] Closed 12/16/2022 12/16/2023 1 1 Reason for Visit * Reason Onset Date Comments Communication 12/16/2022 ECT Encounter Details Date Type Department Care Team (Latest Contact Info) Description 12/16/2022 Clinical Communication Department of Obstetrics and Gynecology, Division of Urogynecology in [place], [place] [address] [place] [address] Duong Giraldo M.D. [address] [place] [address] Communication (ECT) Social History Tobacco Use Types Packs/Day Years [...] often do you attend chur ch or orthodox services? More than 4 times per year 07/07/2022 Do you belong to any clubs o r organizations such as mosque groups, unions, fraternal or athletic groups, or [...] Answer Date Recorded PHQ-2 Score 0 11/13/2021 [facility] of Occupat ional Health - Occupational Stress [...] place to sleep or slept in a long term (including now)? No 07/07/2022 Nutrition Answer Date [...] 07/20/2023 12:36 PM CDT Hospital Encounter [facility] 02 4 AM ADMIT [address] [place] [address] Dahlia Guzman M.D. [address] [place] [address] 07/20/2023 12:36 PM CDT - 07/20/2023 5:47 PM CDT Surgery [facility] OR [address] [place] [address] Dahlia Guzman M.D. [address] [place] [phone] ROBOTIC-ASSISTED VENTRAL HERNIA REPAIR Scheduled Procedures Name [...] Associated Diagnoses Order Schedule Obstetrics and Gynecology - Urogynecology consult (clinic) Outpatient Referral Routine Incontinence Urinary Stress Female Expected: 12/18/2022 (Approximate), Expires: 03/20/2024 documented as of this encounter Results * NC SIERRA PST VOID RESID US NON IMG, NC UROFLOWMETRY CMPLX, NC CYSTOMETROGRAM COMPLEX (02/25/2023 1:45 PM CDT) Narrative [...] Diagnoses Diagnosis Incontinence Urinary Stress Female- Primary Incontinence Urinary Stress Female- Primary Hernia Incisional Incontinence Urinary Stress Female documented in this encounter Care Teams Pattern Molder Relationship Specialty Start Date End Date Elsewhere, Pcp PCP - General Internal Medicine 07/04/21 02/22/23 documented as of this encounter
--- OUTSIDE RECORDS SUMMARY | 2023-06-09 13:21 | XMS_ITS | Encounter Summary ---
Author Name Unknown Organization [facility] Address [address] [place] [address] Care Team Providers Care Route Carrier Name Role Phone Elsewhere, Pcp Primary Care Provider Unavailabl e Encounter Details Date Type Department Care Team (Late st Contact Info) Description 09/16/2022 [facility] [address] [place] [address] Chuyita Washburn, C.N.P. [address] [place] [address] Abhi Left (Primary Dx) Social History Tobacco Use Types [...] often do you attend chur ch or druze services? More than 4 times per year 07/07/2022 Do you belong to any clubs o r organizations such as anabaptism groups, unions, fraternal or athletic groups, or [...] Answer Date Recorded PHQ-2 Score 0 11/13/2021 [facility] of Occupat ional Health - Occupational [...] to sleep or slept in a senior living (including now)? No 07/07/2022 Nutrition Answer Date [...] [facility] 02 4 AM ADMIT [address] [place] [phone] Dahlia Guzman M.D. [address] [place] [address] 07/20/2023 12:36 PM CDT - 07/20/2023 5:47 PM CDT Surgery [facility] MAIN OR [address] [place] [address] Dahlia Guzman M.D. [address] [place] [address] ROBOTIC-ASSISTED VENTRAL HERNIA REPAIR Scheduled Procedures Name [...] as of this encounter Visit Diagnoses Diagnosis Bunion Left- Primary Hernia Incisional Incontinence Urinary Stress Female documented in this encounter Care Teams Route Carrier Relationship Specialty Start Date End Date Elsewhere, Pcp PCP - General Internal Medicine 07/04/21 02/22/23 documented as of this encounter
--- OUTSIDE RECORDS SUMMARY | 2023-06-09 13:21 | XMS_ITS | Encounter Summary ---
Author Name Unknown Organization [facility] Address [address] [place] [address] Care Team Providers Care Machine Skiver Name Role Phone Elsewhere, Pcp Primary Care Provider Unavailabl e Encounter Details Date Type Department Care Team ([facility] st Contact Info) Description 08/22/2022 Orders Only Department of Dermatology in [place], [place] [address] [place] [phone] Justin Chaudhary M.D. [address] [place] [address] Social History Tobacco Use Types Packs/Day Years [...] How often do you attend chur or hoahaoism services? More than 4 times per year 07/07/2022 Do you belong to any clubs o r organizations such as methodist groups, unions, fraternal or athletic groups, or [...] Recorded PHQ-2 Score 0 11/13/2021 [facility] of Occupat ional [facility] - Occupational Stress Questionnaire Answer Date [...] place to sleep or slept in a fpc (including now)? No 07/07/2022 Nutrition Answer Date [...] [facility] 02 4 AM ADMIT [address] [place] [address] Dahlia Guzman M.D. [address] [place] [address] 07/20/2023 12:36 PM CDT - 07/20/2023 5:47 PM CDT Surgery [facility] OR [address] [place] [address] Dahlia Guzman M.D. [address] [place] [address] ROBOTIC-ASSISTED VENTRAL HERNIA REPAIR Scheduled Procedures Name Priority Associated Diagnoses Date/Ti ny ROBOTIC-ASSISTED VENTRAL HERNIA REPAIR Hernia Incisional Incontinence [...] on filedocumented in this encounter Care Teams Machine Skiver Relationship Specialty Start Date End Date Elsewhere, Pcp PCP - General Internal Medicine 07/04/21 02/22/23 documented as of this encounter
--- OUTSIDE RECORDS SUMMARY | 2023-06-09 13:21 | XMS_ITS | Encounter Summary ---
Author Name Unknown Organization [facility] Address [address] [place] [address] Care Team Providers Care Belting Cutter Name Role Phone Elsewhere, Pcp Primary Care Provider Unavailabl e Reason for Visit * Reason Comments Med Refill Encounter Details Date Type Department Care Team (Late st Contact Info) Description 12/11/2022 Refill Division of General Internal Medicine in [place], [place] [address] [place] [phone] Gene Evans M.D., M.S. [address] [place] [phone] Med Refill Social History Tobacco Use Types [...] often do you attend chur ch or taoism services? More than 4 times per year 07/07/2022 Do you belong to any clubs o r organizations such as gnosticism groups, unions, fraternal or athletic groups, or [...] Answer Date Recorded PHQ-2 Score 0 11/13/2021 [facility] Questionnaire Answer Date [...] [facility] 02 4 AM ADMIT [address] [place] [address] Dahlia Guzman M.D. [address] [place] [address] 07/20/2023 12:36 PM CDT - 07/20/2023 5:47 PM CDT Surgery [facility] OR [address] [place] [address] Dahlia Guzman M.D. [address] [place] [address] ROBOTIC-ASSISTED VENTRAL HERNIA REPAIR Scheduled Procedures Name Priority Associated Diagnoses Date/Ti ga ROBOTIC-ASSISTED VENTRAL HERNIA REPAIR Hernia Incisional Incontinence [...] on filedocumented in this encounter Care Teams Belting Cutter Relationship Specialty Start Date End Date Elsewhere, Pcp PCP - General Internal Medicine 07/04/21 02/22/23 documented as of this encounter
--- OUTSIDE RECORDS SUMMARY | 2023-06-09 13:21 | XMS_ITS | Encounter Summary ---
Author Name Unknown Organization [facility] Address [address] [place] [address] Care Team Providers Care Manager Parking Name Role Phone Elsewhere, Pcp Primary Care Provider Unavailabl e Reason for Referral * Outpatient (Routine) - Closed Specialty Diagnoses / Procedures Referred By Contac t Referred To Contact General Surgery Diagnoses Unspecified Abdominal Hernia Without Obstruction Or Gangrene Chuyita Washburn, C.N.P. [address] [place] [address] [facility] Region Referral ID Status Reason Start Date Expiration Date Visits Re quested Visits Authorized [id number] Closed 11/20/2022 11/20/2023 1 1 Encounter Details Date Type Department Care Team (Late st Contact Info) Description 11/20/2022 [facility] [address] [place] [address] Chuyita Washburn, C.N.P. [address] [place] [phone] Unspecified Abdominal Hernia Without Obstruction Or Gangrene (Primary Dx) Social History Tobacco Use Types [...] week 07/07/2022 How often do you attend [facility] or druze services? More than 4 times per year 07/07/2022 Do you belong to any clubs o r organizations such as scientologist groups, unions, fraternal or athletic groups, or [...] Recorded PHQ-2 Score 0 11/13/2021 [facility] of Occupat ional Health - [...] 07/20/2023 12:36 PM CDT Hospital Encounter [facility] 02 4 AM ADMIT [address] [place] [address] Dahlia Guzman M.D. [address] [place] [address] 07/20/2023 12:36 PM CDT - 07/20/2023 5:47 PM CDT Surgery [facility] MAIN OR [address] [place] [address] Dahlia Guzman M.D. [address] [place] [address] ROBOTIC-ASSISTED VENTRAL HERNIA REPAIR Scheduled Procedures Name [...] Associated Diagnoses Orde r Schedule General Surgery Referral Outpatient Referral Routine Unspecified Abdominal Hernia Without Obstruction Or Gangrene Expected: 11/20/2022 (Approximate), Expires: 02/21/2024 documented as of this encounter Visit Diagnoses Diagnosis Unspecified Abdominal Hernia Without Obstruction Or Gangrene- Primary Hernia Incisional Incontinence Urinary Stress Female documented in this encounter Care Teams Manager Parking Relationship Specialty Start Date End Date Elsewhere, Pcp PCP - General Internal Medicine 07/04/21 02/22/23 documented as of this encounter
--- OUTSIDE RECORDS SUMMARY | 2023-06-09 13:22 | XMS_ITS | Encounter Summary ---
Author Name Unknown Organization [facility] Address [address] [place] [address] Care Team Providers Care Program Management Manager Name Role Phone Elsewhere, Pcp Primary Care Provider Unavailabl e Reason for Visit * Reason Onset Date Comments Pre-visit Intake 07/10/2022 Encounter Details Date Type Department Care Team (Latest Contact Info) Description 07/10/2022 8:15 AM ASSET ANALYST Clinical Communication Virtual Review in [place], [place] 200 [place], [place] [phone] Pre-visit Intake Social History Tobacco Use Types [...] any clubs o r organizations such as protestant groups, unions, fraternal or athletic groups, or [...] Answer Date Recorded PHQ-2 Score 0 11/13/2021 [facility] of Occupat ional Health - Occupational [...] RO 02 4 AM ADMIT [address] [place] [phone] Dahlia Guzman M.D. [address] [place] [phone] 07/20/2023 12:36 PM CDT - 07/20/2023 5:47 PM CDT Surgery [facility] OR [address] [place] [phone] Dahlia Guzman M.D. [address] [place] [address] ROBOTIC-ASSISTED VENTRAL HERNIA REPAIR Scheduled Procedures Name Priority Associated Diagnoses Date/Ti mi ROBOTIC-ASSISTED VENTRAL HERNIA REPAIR Hernia Incisional Incontinence [...] on filedocumented in this encounter Care Teams Program Management Manager Relationship Specialty Start Date End Date Elsewhere, Pcp PCP - General Internal Medicine 07/04/21 02/22/23 documented as of this encounter
--- OUTSIDE RECORDS SUMMARY | 2023-06-09 13:22 | XMS_ITS | Encounter Summary ---
Author Name Unknown Organization [facility] Address [address] [place] [address] Care Team Providers Care Body Shop Technician Name Role Phone Elsewhere, Pcp Primary Care Provider Unavailabl e Encounter Details Date Type Department Care Team ([facility] st Contact Info) Description 07/14/2022 Orders Only Department of Dermatology in [place], [place] [address] [place] [phone] Justin Chaudhary M.D. [address] [place] [address] Social History Tobacco Use Types Packs/Day Years [...] How often do you attend chur or denominational services? More than 4 times per year 07/07/2022 Do you belong to any clubs o r organizations such as confucianist groups, unions, fraternal or athletic groups, or [...] Answer Date Recorded PHQ-2 Score 0 11/13/2021 [facility] of Occupat ional [facility] - Occupational Stress Questionnaire Answer Date [...] [facility] 02 4 AM ADMIT [address] [place] [address] Dahlia Guzman M.D. [address] [place] [address] 07/20/2023 12:36 PM CDT - 07/20/2023 5:47 PM CDT Surgery [facility] OR [address] [place] [address] Dahlia Guzman M.D. [address] [place] [address] ROBOTIC-ASSISTED VENTRAL HERNIA REPAIR Scheduled Procedures Name Priority Associated Diagnoses Date/Ti ar ROBOTIC-ASSISTED VENTRAL HERNIA REPAIR Hernia Incisional Incontinence [...] on filedocumented in this encounter Care Teams Body Shop Technician Relationship Specialty Start Date End Date Elsewhere, Pcp PCP - General Internal Medicine 07/04/21 02/22/23 documented as of this encounter
--- OUTSIDE RECORDS SUMMARY | 2023-06-09 13:22 | XMS_ITS | Encounter Summary ---
Author Name Unknown Organization [facility] Address [address] [place] [address] Care Team Providers Care Preparing Box Tender Name Role Phone Elsewhere, Pcp Primary Care Provider Unavailabl e Reason for Referral * Medication Prior Authorization - Denied Specialty Diagnoses / Procedures Referred By Nikki martin Referred To Contact Justin Chaudhary M.D. [address] [place] [phone] Referral ID Status Reason Start Date Expiration Date Visits Re quested Visits Authorized [id number] Denied 1 1 ORY MAINTENANCE MANAGER Reason for Visit * Appointment Request (Routine) - Closed Specialty Diagnoses / Procedures Referred By Contac t Referred To Contact Dermatology Diagnoses Screening Examination Skin Cancer Referral ID Status Reason Start Date Expiration Date Visits Re quested Visits Authorized [id number] Closed 04/29/2022 04/29/2023 1 1 Encounter Details Date Type Department Care Team (Late st Contact Info) Description 07/11/2022 4:40 PM FACTORY MAINTENANCE MANAGER Office Visit Department of Dermatology in [place], [place] [address] [place] [phone] Justin Chaudhary M.D. [address] [place] [phone] Nevi Multiple (Primary Dx); Keratosis Seborrheic; Cancer Skin Basal Cell Personal History Discharge Disposition: Home or Self Care Social [...] any clubs o r organizations such as taoism groups, unions, fraternal or athletic groups, or [...] Answer Date Recorded PHQ-2 Score 0 11/13/2021 [facility] - Occupational Stress Questionnaire Answer Date [...] place to sleep or slept in a long-term (including now)? No 07/07/2022 Nutrition Answer Date [...] as of this encounter Consult Notes * Justin Chaudhary M.D. - 07/11/2022 4:40 PM CST SUBJECTIVE REASON FOR CONSULT Skin check. HISTORY OF PRESENT ILLNESS Mrs. 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 Today, Mrs. Elizondo denies any spots of concern. She would like a refill for her tretinoin cream, which is used for facial rejuvenation. Please see my note of June 21, 2021, for additional concerns that have been discussed in the past. SOCIAL HISTORY Mrs. Elizondo is (her 's name is David). They grew up in [place], [place], andcurrently reside there. They were in October of 1965. They have 9 grandchildren, some of whom live in [place], [place] ([facility]). One of their grandchildren was in April 2021. The patient and her spend 1 month yearly in [place]. They host an annual [employer] gathering at their house. Their daughter is an manufacturing technology professor at [employer] in [place], [place]. One of their grandsons graduated college from [employer] in 2021. and Mrs. Elizondo are doing a memory book with their family entitled [employer] and they are greatly enjoying this. Several of the patient's family members from [place] will be traveling for 3 weeks to meet with them in [place] in October of 2022, and they will be traveling up to [place], [place], [facility]. Mrs. Elizondo will be expecting her 1st great-grandchild in January 2023 (who lives in [place], [place]). OBJECTIVE PHYSICAL EXAMINATION Skin: Full skin examination performed today, inclusive of head, neck, chest, abdomen, back, buttocks, all 4 extremities, hair and nails with significant findings as noted below: There is no evidence of recurrent skin cancer on examination of the right kimble. There are scatteredseborrheic keratoses of the trunk and extremities. There are a few scattered benign-appearing nevi of the trunk. There are no concerning lesions for skin cancer on today's examination. ASSESSMENT / PLAN #1 History of superficial basal cell carcinoma, right kimble, status post curettage and cryotherapy in 2013; no evidence of recurrence #2 Seborrheic keratoses #3 Benign-appearing nevi #4 Use of tretinoin cream for facial rejuvenation A refill for tretinoin 0.05% cream used nightly to the face was provided. Mrs. Elizondo follows up annually for skin examinations and can return in the interim if she notes any worrisome or changing lesions. PATIENT EDUCATION: Ready to learn. No apparent learning barriers were identified. Learning preferences include listening. Explained diagnosis and treatment plan; patient/guardian of patient expressed understanding of the content. Justin Chaudhary M.D. CT CT Job ID: [id number] documented in this encounter Plan of Treatment Upcoming Encounters Date Type Department Care Team (Latest Contact Info) Description 07/20/2023 12:36 PM CDT Hospital Encounter [facility] 02 4 AM ADMIT [address] [place] [address] Dahlia Guzman M.D. [address] [place] [address] 07/20/2023 12:36 PM CDT - 07/20/2023 5:47 PM CDT Surgery [facility] MAIN OR [address] [place] [address] Dahlia Guzman M.D. [address] [place] [address] ROBOTIC-ASSISTED VENTRAL HERNIA REPAIR Scheduled Procedures Name Priority Associated Diagnoses Date/Ti nm ROBOTIC-ASSISTED VENTRAL HERNIA REPAIR Hernia Incisional Incontinence Urinary Stress Female 07/20/2023 12:36 PM CDT TRANSPOSITION MUSCLE FLAP POSTERIOR TRUNK Hernia Incisional Incontinence Urinary Stress Female 07/20/2023 12:36 PM CDT INSERTION RETROPUBIC SYNTHETIC MIDURETHRAL SLING Hernia Incisional Incontinence Urinary Stress Female 07/20/2023 12:36 PM CDT PERIURETHRAL/TRANSURETHRAL BULKING AGENT Incontinence Urinary Stress Female documented as of this encounter Visit Diagnoses Diagnosis Nevi Multiple- Primary Keratosis Seborrheic Cancer Skin Basal Cell Personal History Hernia Incisional Incontinence Urinary Stress Female documented in this encounter Care Teams Preparing Box Tender Relationship Specialty Start Date End Date Elsewhere, Pcp PCP - General Internal Medicine 07/04/21 02/22/23 documented as of this encounter
== END 2023-06-09 13:17 | disposition home or self-care (01) ==
PROVIDERS: PCP Nurse Practitioner Family; Visit Provider Nurse Practitioner Family
DX: E78.5 Hyperlipidemia, unspecified (principal); I10 Essential (primary) hypertension
CPT/HCPCS: 80053; 80061

== ENCOUNTER 2024-08-23 15:18 | Outpatient (CLI) | payer MEDICARE, BC, SELFPAY | END 2024-08-23 15:19 | disposition home or self-care (01) | LOC: KYNREF 15:19 | PROVIDERS: PCP Nurse Practitioner Family; Visit Provider Nurse Practitioner Family | DX: N12 Tubulo-interstitial nephritis, not specified as acute or chronic (principal) | CPT/HCPCS: 87086 ==

== ENCOUNTER 2024-11-29 13:28 | Outpatient (CLI) | payer MEDICARE, BC, SELFPAY | END 2024-11-29 13:29 | disposition home or self-care (01) | PROVIDERS: PCP Nurse Practitioner Family; Visit Provider Nurse Practitioner Family | DX: E78.5 Hyperlipidemia, unspecified (principal); I10 Essential (primary) hypertension; Z13.0 Encounter for screening for diseases of the blood and blood-forming organs and certain disorders involving the immune mechanism | CPT/HCPCS: 80053; 80061; 85025 ==

== ENCOUNTER 2025-02-21 15:13 | Outpatient (CLI) | payer MEDICARE, BC, SELFPAY | END 2025-02-21 15:14 | disposition home or self-care (01) | PROVIDERS: PCP Nurse Practitioner Family; Visit Provider Nurse Practitioner Family | DX: R10.31 Right lower quadrant pain (principal) | CPT/HCPCS: 80053; 85025 ==